=== PATIENT | female | born 1955 | race Caucasian/White ===

== ENCOUNTER 2016-11-09 08:46 | Day surgery (SDC) | payer OTHER ==
--- NOTE | 2016-11-07 15:01 | HP ---
PROCEDURE DATE: 11/09/16 HISTORY OF PRESENT ILLNESS: The patient is a 61 y/o female with no prior colonoscopy and family history of colon cancer in a grandmother and an aunt. She had a daughter and her father that had some polyps. No bloody stools. No change in bowel movements. No pain. Is in need of screening colonoscopy. PAST MEDICAL HISTORY: Hypertension. CURRENT MEDICATIONS: Metoprolol, [place], Xanax, Lasix, potassium, Feldene, Imdur, Lipitor, amlodipine besylate, and nitro PRN. ALLERGIES: NKDA. PAST SURGICAL HISTORY: Had 3 C-Sections, heart cath, foot surgery, tonsillectomy/adenoidectomy in the past. FAMILY HISTORY: As mentioned above. Also, includes hypertension and cancer. SOCIAL HISTORY: No smoking. Reports occasional alcohol use. No abuse. REVIEW OF SYSTEMS: 10 systems reviewed. No chest pain or palpitations. Other systems negative or noncontributory other than above and per preadmission questionnaire. PHYSICAL EXAMINATION: GENERAL: No acute distress. HEENT: Sclerae nonicteric. NECK: No JVD. CHEST: Equal excursion. Nonlabored breathing. CVS: Regular rate and rhythm. ABDOMEN: Soft. No peritoneal signs. EXTREMITIES: No significant edema. NEURO: Alert, moving extremities grossly symmetrically. No gross motor deficits noted. RECTAL: Deferred until time of endoscopy exam. IMPRESSION: 1. NEED FOR SCREENING COLONOSCOPY. Feel she is a candidate. She was shown the risk sheet and explained the procedure in detail, but not limited to, bleeding; infection; small risk of bowel injury or perforation possibly requiring open procedure; small risk of missed or nondiagnosis or incomplete exam possibly requiring barium enema or other studies or procedures; general risk of bowel prep; risk of sedation; post-op risk of nausea or vomiting or cramping, but not limited to. She understands and agrees to the planned procedure. Will proceed with outpatient screening colonoscopy.
[~2016-11-09 08:46] MED LIST: DIPRIVAN 200 MG/20 ML IV ONE; Lactated Ringers 1,000 ML IV ONE; SUBLIMAZE 100 MCG/2 ML IV ONE; Versed 2 MG/2 ML Injection IV ONE
[2016-11-09] MEDS ORDERED: Lactated Ringers 1,000 ML IV SCH (09:00)
[2016-11-09 11:41] VITALS: BP 127/62; PULSE 54; O2SAT 96
--- NOTE | 2016-11-09 15:00 | OP ---
SURGERY DATE/TIME: 11/09/2016 1015 PREOPERATIVE DIAGNOSIS: Family history of colon cancer need for screening colonoscopy. POSTOPERATIVE DIAGNOSES: 1) Small polyp rectum. 2) Small diverticula. 3) Small internal and external hemorrhoids. 4) Somewhat limited prep proximal right colon. PROCEDURES: Colonoscopy to cecum with hot biopsy removal in pieces small rectal polyp. SURGEON: Dr. Julio Mccullough. ANESTHESIA: MAC. ESTIMATED BLOOD LOSS: Minimal. INDICATIONS: As noted above. Risks and benefits explained in detail but not limited to and consent obtained. DESCRIPTION OF PROCEDURE AND FINDINGS: The patient is taken to the endoscopy room. MAC anesthesia induced. After official time out and no disagreement with planned procedure, digital rectal exam did not reveal any rectal masses. She did have some internal and external hemorrhoids. Video colonoscope inserted and passed up through the slightly tortuous sigmoid, descending, transverse colon. Prep overall was fairly good over to the proximal right colon I saw liquidy stool limiting the exam slightly. The scope was able to be passed around to the cecum valve, appendiceal orifice was well visualized and some semisolid and liquidy stool suction irrigated as well as possible. The scope then slowly and carefully withdrawn. There were no signs of any large polyps, masses or obstructing lesions. She did have a few diverticula in the left colon. She had some small internal and external hemorrhoids otherwise no large polyps, masses or obstructing lesions. There was a small polyp in the mid to distal rectum that was removed with hot biopsy forceps with brief bursts of cautery this required removing in two pieces. Good hemostasis noted. The scope is withdrawn. The patient tolerated the procedure well. There were no immediate complications. Findings were discussed with the family out in the hallway.
== END 2016-11-09 12:08 | disposition home or self-care (01) ==
LOC: SDC 08:46
PROVIDERS: ATTEND Surgery
PROC: 0DBH8ZX Excision of Cecum, Via Natural or Artificial Opening Endoscopic, Diagnostic (ICD-10-PCS; principal; 2016-11-09)
DX: K62.1 Rectal polyp (principal); Z12.11 Encounter for screening for malignant neoplasm of colon; Z80.0 Family history of malignant neoplasm of digestive organs; K57.90 Diverticulosis of intestine, part unspecified, without perforation or abscess without bleeding; K64.4 Residual hemorrhoidal skin tags; K64.8 Other hemorrhoids; I10 Essential (primary) hypertension; Z79.899 Other long term (current) drug therapy
CPT/HCPCS: 00810; 36415; 88305; J2250; J2704; J3010

== ENCOUNTER 2021-05-11 15:44 | Emergency (ER) | payer SELFPAY ==
[2021-05-11] MEDS ORDERED: Sodium Chloride 0.9% 1000 ML 1,000 ML IV STA (16:59)
[2021-05-11 17:25] LABS: Absolute Neutrophil Ct (ANC) 4.27 (1.4-6.9); BASOPHIL % 0.3 % (0.0-0.4); Basophil (Absolute #) 0.02 (0-0.4); Eosinophil % 1.8 % (0.00-5.0); Eosinophil (Absolute #) 0.13 (0-0.5); Hematocrit 46.9 % (35-47); Hemoglobin 15.6 gm/dl (12.0-16.0); Lymphocyte (Absolute #) 2.09 (1.0-4.6); Lymphocytes % 28.6 % (24.0-44.0); Mean Cell Volume 91.4 fl (78-100); Mean Corpuscular Hemoglobin 30.4 pg (26-32); Mean Corpuscular Hgb Concent. 33.3 g/dl (32-36); Monocytes % 10.9 % (0.0-12.0); Neutrophil % 58.4 % (36.0-66.0); Platelet Count 272 K/mm3 (150-450); Red Blood Count 5.13 M/mm3 (4.1-5.4); Red Cell Distribution Width 13.3 % (11.5-14.0); White Blood Count 7.3 K/mm3 (4.0-10.5)
--- NOTE | 2021-05-11 17:25 | ERPHSYRPT ---
- History of Present Illness Time Seen by Provider: 05/11/21 16:33 Source: patient Exam Limitations: no limitations Patient Subjective Stated Complaint: weakness- COVID POSITIVE Triage Nursing Assessment: Patient brought back to ED via w/c and transferred self to bed. Patient A+O X3. Patient's skin flushed, warm and dry. Patient positive with COVID on 05/07/2021 at [facility]. Patient complains of fever, cough, vomiting, diarrhea, loss of taste, Headache, bodyaches and fatigue. Patient states she has been in bed several days and not able to eat or drink. Physician History: 65 years old female vaccinated against COVID-19 with complains of generalized body ache fatigue and tiredness for 1 week along with vomiting and diarrhea and tested positive for COVID-19 on 05 07 presented in the ER with generalized weakness and lack of energy and feels as if she is dehydrated. Patient reports she had multiple episodes of nonprojectile, nonbilious vomiting until day before yesterday and did not have any vomiting since then but does have loose watery stool which she has every time she drinks or eat anything. She has a decreased appetite. She feels dehydrated as she is not been able to hold much down. No chest pain, minimal shortness of breath at times and has nonproductive cough minimally. Patient wants IV fluids. Timing/Duration: week(s) (1), gradual onset Severity: moderate Associated Symptoms: nausea, vomiting, cough, chills, fever, headaches, loss of appetite, malaise, weakness, No shortness of breath, No chest pain Allergies/Adverse Reactions: No Known Drug Allergies Allergy (Verified 05/11/21 16:13) Home Medications: Furosemide 40 mg [Lasix 40 MG] 40 mg PO DAILY 08/14/12 [History] ALPRAZolam 1 MG [Xanax 1 mg] 1 mg PO DAILY 10/07/16 [History] Amlodipine/Valsartan [[place] 5-320 mg Tablet] 1 each PO DAILY 10/07/16 [History] Atorvastatin Calcium [Lipitor] 10 mg PO DAILY 10/07/16 [History] Fluticasone Propionate [Flonase NASAL] 2 sprays NS DAILY 10/07/16 [History] Hydrocodone/APAP 10/325 mg [[place] 10/325 MG Tablet] 1 tab PO BID 10/07/16 [History] Isosorbide Mononitrate 30 mg [Imdur 30 MG] 30 mg PO DAILY 10/07/16 [Histor y] Metoprolol Succinate 50 mg [Toprol Xl 50 MG] 50 mg PO DAILY 10/07/16 [History] Nitroglycerin 0.4 mg (Ed) [Nitrostat 0.4 MG (ED)] 0.4 mg SL UD 10/07/16 [History] Piroxicam [Feldene] 20 mg PO DAILY 10/07/16 [History] Potassium Chloride 10 Meq Tab* [Klor Con 10 MEQ] 10 meq PO DAILY 10/07/16 [History] Hx Tetanus, Diphtheria Vaccination/Date Given: No Hx Influenza Vaccination/Date Given: Yes (2020) Hx Pneumococcal Vaccination/Date Given: No Immunizations Up to Date: Yes Travel Risk - International Travel Have you traveled outside of the country in past 3 weeks: No - Coronavirus Screening Are you exhibiting any of the following symptoms?: Yes Symptoms: Fever, Cough: New Onset, Vomiting/Diarrhea, Headaches/Body Aches/Fatigue Close contact with a COVID-19 positive Pt in past 14-21 Days: No - Vaccine Status Have you recieved a Covid-19 vaccination: No 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 - Vaccination Dates Date of 2cond Vaccination (if applicable): unknown - Review of Systems Constitutional: Fatigue, Weakness Eyes: No Symptoms Ears, Nose, & Throat: No Symptoms Respiratory: Cough Cardiac: No Symptoms Abdominal/Gastrointestinal: Nausea, Vomiting, Diarrhea Genitourinary Symptoms: No Symptoms Musculoskeletal: Myalgias Skin: No Symptoms Neurological: No Symptoms Psychological: No Symptoms Endocrine: No Symptoms Hematologic/Lymphatic: No Symptoms Immunological/Allergic: No Symptoms - Past Medical History Pertinent Past Medical History: Yes Neurological History: No Pertinent History ENT History: No Pertinent History Cardiac History: Angina, Hypertension Respiratory History: No Pertinent History Endocrine Medical History: No Pertinent History Musculoskeletal History: Arthritis GI Medical History: No Pertinent History History: No Pertinent History Psycho-Social History: Anxiety Female Reproductive Disorders: No Pertinent History - Past Surgical History Past Surgical History: Yes Neuro Surgical History: No Pertinent History Cardiac: Cardiac Catheterization Gastrointestinal: No Pertinent History Genitourinary: No Pertinent History Musculoskeletal: Other Female Surgical History: Section, Tubal Ligation Other Surgical History: foot surgery - Social History Smoking Status: Never smoker Exposure to second hand smoke: Yes Drug Use: none Patient Lives Alone: Yes - Female History Hx Now: No - Nursing Vital Signs Nursing Vital Signs: Initial Vital Signs Temperature 99.0 F 05/11/21 16:15 Pulse Rate 77 05/11/21 16:15 Respiratory Rate 18 05/11/21 16:15 Blood Pressure 125/72 05/11/21 16:15 O2 Sat by Pulse Oximetry 96 05/11/21 16:15 Pain Scale Pain Intensity 5 - Physical Exam General Appearance: no apparent distress, alert, anxiety Eye Exam: PERRL/EOMI, eyes nml inspection Ears, Nose, Throat Exam: normal ENT inspection, TMs normal, pharynx normal, moist mucous membranes Neck Exam: normal inspection, non-tender, supple, full range of motion Respiratory Exam: normal breath sounds, lungs clear Cardiovascular Exam: regular rate/rhythm, normal heart sounds Gastrointestinal/Abdomen Exam: soft, normal bowel sounds, No tenderness Back Exam: normal inspection, normal range of motion Extremity Exam: normal inspection, normal range of motion, pelvis stable Neurologic Exam: alert, oriented x 3, cooperative, hha II-XII nml as tested, nml cerebellar function, sensation nml, No motor deficits Skin Exam: normal color SpO2 Interpretation: normal SpO2: 96 O2 Delivery: Room Air - Course EKG Interpreted by Me: RATE (76), Sinus Rhythm, NORMAL AXIS, NORMAL INTERVALS, Non-specific ST Changes Ordered Tests: Active Orders 24 hr Category Date Time Status CHEST 1 VIEW (PORTABLE) Stat Exams 05/11/21 16:59 Taken CBC W DIFF Stat Lab 05/11/21 17:21 Completed CMP Stat Lab 05/11/21 17:21 Completed LIPASE Stat Lab 05/11/21 17:21 Completed MAGNESIUM Stat Lab 05/11/21 17:21 Completed NT PRO BNP Stat Lab 05/11/21 17:21 Completed UA W/RFX UR CULTURE Stat Lab 05/11/21 16:59 Ordered Medication Summary Discontinued Medications Generic Name Dose Route Start Last Admin Trade Name Freq PRN Reason Stop Dose Admin Sodium Chloride 1,000 mls @ 999 mls/hr 05/11/21 16:59 05/11/21 18:47 Sodium Chloride 0.9% 1000 Ml IV 05/11/21 17:59 Infused .Q1H1M STA Infusion Sodium Chloride Confirm 05/11/21 17:30 Sodium Chloride 0.9% 1000 Ml Administered 05/11/21 17:31 Dose 1,000 mls @ ud .ROUTE .K-MED ONE Lab/Rad Data: Laboratory Result Diagrams 05/11/21 17:21 05/11/21 17:21 Laboratory Results 05/11/21 05/11/21 Range/Units 17:21 17:21 WBC 7.3 (4.0-10.5) K/mm3 RBC 5.13 (4.1-5.4) M/mm3 Hgb 15.6 (12.0-16.0) gm/dl Hct 46.9 (35-47) % MCV 91.4 (78-100) fl MCH 30.4 (26-32) pg MCHC 33.3 (32-36) g/dl RDW 13.3 (11.5-14.0) % Plt Count 272 (150-450) K/mm3 MPV 10.0 (7.5-11.0) fl Gran % 58.4 (36.0-66.0) % Eos # (Auto) 0.13 (0-0.5) Absolute Lymphs (auto) 2.09 (1.0-4.6) Absolute Monos (auto) 0.80 (0.0-1.3) Lymphocytes % 28.6 (24.0-44.0) % Monocytes % 10.9 (0.0-12.0) % Eosinophils % 1.8 (0.00-5.0) % Basophils % 0.3 (0.0-0.4) % Absolute Granulocytes 4.27 (1.4-6.9) Basophils # 0.02 (0-0.4) Sodium 142 (137-145) mmol/L Potassium 4.0 (3.5-5.1) mmol/L Chloride 107 (98-107) mmol/L Carbon Dioxide 21 L (22-30) mmol/L Anion Gap 17.7 H (5-15) MEQ/L BUN 13 (7-17) mg/dL Creatinine 0.70 (0.52-1.04) mg/dL Estimated GFR > 60.0 ML/MIN Glucose 89 (74-106) mg/dL Calcium 10.0 (8.4-10.2) mg/dL Magnesium 2.1 (1.6-2.3) mg/dL Total Bilirubin 0.80 (0.2-1.3) mg/dL AST 31 (14-36) U/L ALT 47 H (0-35) U/L Alkaline Phosphatase 98 (38-126) U/L NT-Pro-B Natriuret Pep 47.2 (0-900) pg/mL Serum Total Protein 7.4 (6.3-8.2) g/dL Albumin 4.1 (3.5-5.0) g/dL Lipase 158 (23-300) U/L - Progress Progress: improved, re-examined Progress Note: 05/11/21 19:16 She is given fluid bolus. Does not want anything for pain. Does not have any vomiting or nausea today. Abdominal exam is soft nontender with no peritoneal signs. Chest x-ray questionable airspace disease on the right but she is maintaining oxygen saturation around 98% and not tachypneic or tachycardic. Is probably viral etiology. Do not think she needs antibiotic. Work-up grossly unremarkable except for mild dehydration. Recommended increase hydration and will give Zofran to take as needed and outpatient follow-up. Discussed signs symptoms of worsening to ER which she seems understanding. Stable for discharge. Counseled pt/family regarding: lab results, diagnosis, need for follow-up, rad results - Departure Departure Disposition: Home Clinical Impression: Viral syndrome, Dehydration Condition: Stable Critical Care Time: No Referrals: AJAY WARREN [Primary Care Provider] - (Call tomorrow for reevaluation) Instructions: Dehydration, Adult (DC), Viral Syndrome (DC) Additional Instructions: Drink plenty of fluids to keep yourself well-hydrated. Take Zofran as needed. Follow-up with your primary care for reevaluation. Return to ER if have any difficulty breathing, worsening cough, constant high-grade fever chills etc. Prescriptions: Ondansetron ODT 4 MG [Zofran Odt 4 mg] 4 mg PO Q6H PRN PRN #7 tablet PRN Reason: Vomiting
[2021-05-11] MEDS ORDERED: Sodium Chloride 0.9% 1000 ML 1,000 ML ONE (17:30)
[2021-05-11 18:06] VITALS: O2SAT 96
[2021-05-11 18:07] LABS: ALBUMIN 4.1 g/dL (3.5-5.0); ALKALINE PHOSPHATASE 98 U/L (38-126); ANION GAP 17.7 MEQ/L (5-15); BLOOD UREA NITROGEN 13 mg/dL (7-17); CHLORIDE 107 mmol/L (98-107); Carbon Dioxide 21 mmol/L (22-30); EST GLOMERULAR FILTRATION RATE > 60.0 ML/MIN; Glucose 89 mg/dL (74-106); LIPASE 158 U/L (23-300); MAGNESIUM 2.1 mg/dL (1.6-2.3); NT PRO BNP 47.2 pg/mL (0-900); SGOT/AST 31 U/L (14-36); SGPT/ALT 47 U/L (0-35); SODIUM 142 mmol/L (137-145); Total Protein 7.4 g/dL (6.3-8.2)
[2021-05-11 19:36] VITALS: BP 139/73; PULSE 59
--- NOTE | 2021-05-12 08:56 | XRAY ---
Indication: Weakness. Comparison: August 18, 2014. Portable chest now hyperinflated with new right mid to lower lung patchy airspace disease and new minimal left base subsegmental atelectasis/scarring. Remaining heart and upper lungs unremarkable. Bony thorax intact with mild osteopenia and degenerative changes.
== END 2021-05-11 19:43 | disposition home or self-care (01) ==
LOC: ED 15:44
DX: B34.9 Viral infection, unspecified (principal); E86.0 Dehydration; R53.1 Weakness; U07.1 COVID-19; R11.2 Nausea with vomiting, unspecified; R05 Cough; R50.9 Fever, unspecified; R51.9 Headache, unspecified; R63.0 Anorexia; R53.81 Other malaise
CPT/HCPCS: 36000; 36415; 71045; 80053; 83690; 83735; 83880; 85025; 96360; 99284

== ENCOUNTER 2021-11-29 18:28 | Observation (INO) | payer MEDICARE, OTHER ==
[2021-11-29 19:08] LABS: Absolute Neutrophil Ct (ANC) 5.28 (1.4-6.9); Basophil (Absolute #) 0.02 (0-0.4); Eosinophil % 2.2 % (0.00-5.0); Hematocrit 41.9 % (35-47); Hemoglobin 13.6 gm/dl (12.0-16.0); Lymphocytes % 29.8 % (24.0-44.0); Mean Cell Volume 97.4 fl (78-100); Mean Corpuscular Hemoglobin 31.6 pg (26-32); Mean Corpuscular Hgb Concent. 32.5 g/dl (32-36); Mean Platelet Volume 8.9 fl (7.5-11.0); Monocyte (Absolute #) 0.85 (0.0-1.3); Monocytes % 9.4 % (0.0-12.0); Neutrophil % 58.4 % (36.0-66.0); Platelet Count 268 K/mm3 (150-450); Red Cell Distribution Width 13.9 % (11.5-14.0); White Blood Count 9.1 K/mm3 (4.0-10.5)
[2021-11-29 19:09] LABS: INR 0.96 (0.8-3.0); PROTIME 11.3 SECONDS (9.4-12.5)
[2021-11-29 19:11] LABS: PTT 29.7 SECONDS (25.1-36.5)
[2021-11-29 19:14] LABS: ALKALINE PHOSPHATASE 99 U/L (38-126); ANION GAP 12.8 MEQ/L (5-15); BLOOD UREA NITROGEN 15 mg/dL (7-17); CHLORIDE 104 mmol/L (98-107); Calcium 9.4 mg/dL (8.4-10.2); Carbon Dioxide 24 mmol/L (22-30); Creatinine 1 0.78 mg/dL (0.52-1.04); EST GLOMERULAR FILTRATION RATE > 60.0 ML/MIN; Glucose 73 mg/dL (74-106); Potassium 3.7 mmol/L (3.5-5.1); SGOT/AST 24 U/L (14-36); SGPT/ALT 20 U/L (0-35); SODIUM 137 mmol/L (137-145); Total Protein 6.8 g/dL (6.3-8.2)
--- NOTE | 2021-11-29 19:21 | ERPHSYRPT ---
- History of Present Illness Historian: patient, EMS Exam Limitations: no limitations Patient Subjective Stated Complaint: midsternal nonradiating chest pain since 1629 Triage Nursing Assessment: Patient presents to ED via EMS with chief complaint of midsternal, non radiating chest pain since 1629 today. 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 EMS also gave 324 asa and started 20 ga IV in L hand. Skin is PWD. Vitals signs stable, bradycardic at a rate of 50. Denied any other associated sx with the chest pain. Denies nausea, SOB, diaphoresis, etc. A & OX3, answers all questions appropriately. Respirations even and unlabored. Physician History: 66 yo wf w sharp midsternal chest pain starting at 16:30 at work. Pt took 2SL NTG w relief, but pain returned when she got home with relief w 1 additional SL NTG. Pain did not radiate. She states that she was mildly dyspneic without N/V/diaphoresis. Pt denies h/o MN/hyperlipidemia/tobacco use/DM but does have HTN. She has had 2 heart caths in the remote past wo stents by Dr. Laura. Similar pain 3 months ago but was not seen in ER. EMS gave 324 ASA in route. Timing/Duration: other (16:30) Quality: sharpness Location: substernal Chest Pain Radiation: no radiation Severity of Pain-Max: severe Severity of Pain-Current: none Modifying Factors: Improves With: nitroglycerin (Pain resolved w NTG x2 and then x1) Associated Symptoms: shortness of breath, No nausea, No vomiting, No palpitations, No heartburn, No abdominal pain, No cough, No hurts to breathe, No diaphoresis, No chills, No fever, No fatigue, No weakness, No swelling/lump in chest, No syncope, No rash, No headache, No dizziness, No edema, No back pain Prior Chest Pain/Cardiac Workup: cardiac cath Nitro Today/Relief: 0.4 mg x 3 Aspirin Treatment Today: 325 mg x 1, provided by EMS Allergies/Adverse Reactions: No Known Drug Allergies Allergy (Verified 11/30/21 01:08) Home Medications: Furosemide 40 mg [Lasix 40 MG] 40 mg PO DAILY 08/14/12 [History] ALPRAZolam 1 MG [Xanax 1 mg] 1 mg PO DAILY 10/07/16 [History] Amlodipine Besylate/Valsartan [Exforge 5-320 mg Tablet] 1 each PO DAILY 10/07/16 [History] Atorvastatin Calcium [Lipitor] 10 mg PO DAILY 10/07/16 [History] Fluticasone Propionate [Flonase NASAL] 2 sprays NS DAILY 10/07/16 [History] Hydrocodone/APAP 10/325 mg [[place] 10/325 MG Tablet] 1 tab PO BID 10/07/16 [History] Isosorbide Mononitrate 30 mg [Imdur 30 MG] 30 mg PO DAILY 10/07/16 [History] Metoprolol Succinate 50 mg [Toprol Xl 50 MG] 50 mg PO DAILY 10/07/16 [History] Nitroglycerin 0.4 mg (Ed) [Nitrostat 0.4 MG (ED)] 0.4 mg SL UD 10/07/16 [History] Piroxicam [Feldene] 20 mg PO DAILY 10/07/16 [History] Potassium Chloride 10 Meq Tab* [Klor Con 10 MEQ] 10 meq PO DAILY 10/07/16 [History] Hx Tetanus, Diphtheria Vaccination/Date Given: No Hx Influenza Vaccination/Date Given: Yes (2020) Hx Pneumococcal Vaccination/Date Given: No Travel Risk - International Travel Have you traveled outside of the country in past 3 weeks: No - Coronavirus Screening Are you exhibiting any of the following symptoms?: No Close contact with a COVID-19 positive Pt in past 14-21 Days: No - Vaccine Status Have you recieved a Covid-19 vaccination: Yes Video Poker Floorman: SHADOW - Vaccination Dates Date of 2cond Vaccination (if applicable): unknown - Review of Systems Constitutional: No Symptoms Eyes: No Symptoms Ears, Nose, & Throat: No Symptoms Respiratory: No Symptoms, Dyspnea Cardiac: No Symptoms, Chest Pain Abdominal/Gastrointestinal: No Symptoms Genitourinary Symptoms: No Symptoms Musculoskeletal: No Symptoms Skin: No Symptoms Neurological: No Symptoms Psychological: No Symptoms Endocrine: No Symptoms Hematologic/Lymphatic: No Symptoms Immunological/Allergic: No Symptoms - Past Medical History Pertinent Past Medical History: Yes Neurological History: No Pertinent History ENT History: No Pertinent History Cardiac History: Angina, Hypertension Respiratory History: No Pertinent History Endocrine Medical History: No Pertinent History Musculoskeletal History: Arthritis GI Medical History: No Pertinent History History: No Pertinent History Psycho-Social History: Anxiety Female Reproductive Disorders: No Pertinent History - Past Surgical History Past Surgical History: Yes Neuro Surgical History: No Pertinent History Cardiac: Cardiac Catheterization Gastrointestinal: No Pertinent History Genitourinary: No Pertinent History Musculoskeletal: Other Female Surgical History: Section, Tubal Ligation Other Surgical History: foot surgery - Social History Smoking Status: Never smoker Exposure to second hand smoke: Yes Drug Use: none Patient Lives Alone: Yes Significant Family History: no pertinent family hx - Nursing Vital Signs Nursing Vital Signs: Initial Vital Signs Temperature 97.3 F 11/29/21 18:30 Pulse Rate 77 11/29/21 18:30 Respiratory Rate 18 11/29/21 18:30 Blood Pressure 127/86 11/29/21 18:30 O2 Sat by Pulse Oximetry 95 11/29/21 18:30 Pain Scale Pain Intensity 5 WNL - Physical Exam General Appearance: no apparent distress Eye Exam: PERRL/EOMI, eyes nml inspection Ears, Nose, Throat Exam: normal ENT inspection, TMs normal, pharynx normal, moist mucous membranes Neck Exam: normal inspection, non-tender, supple, full range of motion, No meningismus, No mass, No Brudzinski, No Kernig's, No carotid bruit Respiratory Exam: normal breath sounds, lungs clear, airway intact, No chest tenderness, No respiratory distress Cardiovascular Exam: bradycardia, capillary refill <2 sec, No murmur Gastrointestinal/Abdomen Exam: soft, normal bowel sounds, No tenderness Extremity Exam: normal inspection, normal range of motion, pelvis stable Neurologic Exam: alert, oriented x 3, cooperative, 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, normal mood/affect, nml cerebellar function, nml station & gait, sensation nml, No motor deficits, No sensory deficit Skin Exam: normal color, warm, dry Lymphatic Exam: No adenopathy SpO2 Interpretation: normal SpO2: 95 O2 Delivery: Room Air - Course Nursing assessment & vital signs reviewed: Yes EKG Interpreted by Me: RATE (Sinus edin/Rate 50/Prolonged QT/Nonspecific ST abnormality) - Radiology Exams Chest X-ray Interpretation: Interpreted by me (Cardiomegaly, nothing acute) - CT Exams Chest CT Interpretation: Tele-radiologist Report (No PE/pneumonia/prominent mediastinal nodes) Ordered Tests: Active Orders 24 hr Category Date Time Status EKG-ER Only STAT Care 11/29/21 18:41 Completed IV Insertion STAT Care 11/29/21 18:47 Completed Heart-Healthy Diet Diet 11/29/21 Breakfast Active CHEST 1 VIEW (PORTABLE) Stat Exams 11/29/21 18:42 Taken CHEST WITH CONTRAST [CT] Stat Exams 11/29/21 19:54 Taken CBC W DIFF Stat Lab 11/29/21 18:55 Completed CMP Stat Lab 11/29/21 18:55 Completed LIPID PROFILE AM.LAB Lab 11/30/21 04:00 Ordered NT PRO BNP Stat Lab 11/29/21 18:55 Completed PROTIME WITH INR Stat Lab 11/29/21 18:55 Completed PTT Stat Lab 11/29/21 18:55 Completed TROPONIN Q3H Lab 11/29/21 18:55 Completed TROPONIN Q3H Lab 11/29/21 21:41 Completed TROPONIN Q3H Lab 11/30/21 00:53 Completed TROPONIN Q3H Lab 11/30/21 04:06 Completed TROPONIN Q3H Lab 11/30/21 06:45 Ordered Medication Summary Generic Name Dose Route Start Last Admin Trade Name Freq PRN Reason Stop Dose Admin Acetaminophen 650 mg 11/29/21 22:20 11/29/21 23:05 Acetaminophen 325 Mg Tablet PO 12/29/21 22:19 650 mg Q4H PRN PRN Administration PAIN AND/OR FEVER Al Hydrox/Mg Hydrox/Simethicone 30 ml 11/29/21 22:20 Mag Hydrox/Al Hydrox/Simeth 30 Ml Udcup PO 12/29/21 22:19 Q4H PRN PRN INDIGESTION Aspirin 325 mg 11/30/21 10:00 Aspirin 325 Mg Tablet.Ec PO 12/30/21 09:59 DAILY KAYLA Enoxaparin Sodium 40 mg 11/30/21 10:00 Enoxaparin Sodium 40 Mg/0.4 Ml Syringe SQ 12/30/21 09:59 DAILY KAYLA Famotidine 20 mg 11/30/21 10:00 Famotidine 20 Mg/1 Vial IV 12/30/21 09:59 Q12HT KAYLA Magnesium Hydroxide 30 - 60 ml 11/29/21 22:20 Magnesium Hydroxide 30 Ml Udcup PO 12/29/21 22:19 QDP PRN CONSTIPATION Nitroglycerin 0.4 mg 11/29/21 22:20 Nitroglycerin 0.4 Mg Tablet Bottle SL 12/29/21 22:19 .Q5MIN PRN CHEST PAIN Ondansetron HCl 4 mg 11/29/21 22:20 Ondansetron Hcl 4 Mg/2 Ml Vial IV 12/29/21 22:19 Q4H PRN PRN NAUSEA/VOMITING Senna/Docusate Sodium 2 udtab 11/29/21 22:20 Senna/Docusate Sodium 1 Udtab Tablet PO 12/29/21 22:19 BID PRN PRN CONSTIPATION Lab/Rad Data: Laboratory Result Diagrams 11/29/21 18:55 11/29/21 18:55 Laboratory Results 11/29/21 11/29/21 11/29/21 Range/Units 22:42 21:41 18:55 WBC (4.0-10.5) K/mm3 RBC (4.1-5.4) M/mm3 Hgb (12.0-16.0) gm/dl Hct (35-47) % MCV (78-100) fl MCH (26-32) pg MCHC (32-36) g/dl RDW (11.5-14.0) % Plt Count (150-450) K/mm3 MPV (7.5-11.0) fl Gran % (36.0-66.0) % Eos # (Auto) (0-0.5) Absolute Lymphs (auto) (1.0-4.6) Absolute Monos (auto) (0.0-1.3) Lymphocytes % (24.0-44.0) % Monocytes % (0.0-12.0) % Eosinophils % (0.00-5.0) % Basophils % (0.0-0.4) % Absolute Granulocytes (1.4-6.9) Basophils # (0-0.4) PT (9.4-12.5) SECONDS INR (0.8-3.0) APTT (25.1-36.5) SECONDS Sodium (137-145) mmol/L Potassium (3.5-5.1) mmol/L Chloride (98-107) mmol/L Carbon Dioxide (22-30) mmol/L Anion Gap (5-15) MEQ/L BUN (7-17) mg/dL Creatinine (0.52-1.04) mg/dL Estimated GFR ML/MIN Glucose (74-106) mg/dL Calcium (8.4-10.2) mg/dL Total Bilirubin (0.2-1.3) mg/dL AST (14-36) U/L ALT (0-35) U/L Alkaline Phosphatase (38-126) U/L Troponin I < 0.012 (0.000-0.034) ng/mL NT-Pro-B Natriuret Pep 172 (0-900) pg/mL Serum Total Protein (6.3-8.2) g/dL Albumin (3.5-5.0) g/dL Influenza Type A Ag NEGATIVE (NEGATIVE) Influenza Type B Ag NEGATIVE (NEGATIVE) RSV (PCR) NEGATIVE (Negative) SARS-CoV-2 (PCR) NEGATIVE (NEGATIVE) 11/29/21 11/29/21 11/29/21 Range/Units 18:55 18:55 18:55 WBC (4.0-10.5) K/mm3 RBC (4.1-5.4) M/mm3 Hgb (12.0-16.0) gm/dl Hct (35-47) % MCV (78-100) fl MCH (26-32) pg MCHC (32-36) g/dl RDW (11.5-14.0) % Plt Count (150-450) K/mm3 MPV (7.5-11.0) fl Gran % (36.0-66.0) % Eos # (Auto) (0-0.5) Absolute Lymphs (auto) (1.0-4.6) Absolute Monos (auto) (0.0-1.3) Lymphocytes % (24.0-44.0) % Monocytes % (0.0-12.0) % Eosinophils % (0.00-5.0) % Basophils % (0.0-0.4) % Absolute Granulocytes (1.4-6.9) Basophils # (0-0.4) PT 11.3 (9.4-12.5) SECONDS INR 0.96 (0.8-3.0) APTT 29.7 (25.1-36.5) SECONDS Sodium 137 (137-145) mmol/L Potassium 3.7 (3.5-5.1) mmol/L Chloride 104 (98-107) mmol/L Carbon Dioxide 24 (22-30) mmol/L Anion Gap 12.8 (5-15) MEQ/L BUN 15 (7-17) mg/dL Creatinine 0.78 (0.52-1.04) mg/dL Estimated GFR > 60.0 ML/MIN Glucose 73 L (74-106) mg/dL Calcium 9.4 (8.4-10.2) mg/dL Total Bilirubin 0.60 (0.2-1.3) mg/dL AST 24 (14-36) U/L ALT 20 (0-35) U/L Alkaline Phosphatase 99 (38-126) U/L Troponin I < 0.012 (0.000-0.034) ng/mL NT-Pro-B Natriuret Pep (0-900) pg/mL Serum Total Protein 6.8 (6.3-8.2) g/dL Albumin 4.0 (3.5-5.0) g/dL Influenza Type A Ag (NEGATIVE) Influenza Type B Ag (NEGATIVE) RSV (PCR) (Negative) SARS-CoV-2 (PCR) (NEGATIVE) 11/29/21 Range/Units 18:55 WBC 9.1 (4.0-10.5) K/mm3 RBC 4.30 (4.1-5.4) M/mm3 Hgb 13.6 (12.0-16.0) gm/dl Hct 41.9 (35-47) % MCV 97.4 (78-100) fl MCH 31.6 (26-32) pg MCHC 32.5 (32-36) g/dl RDW 13.9 (11.5-14.0) % Plt Count 268 (150-450) K/mm3 MPV 8.9 (7.5-11.0) fl Gran % 58.4 (36.0-66.0) % Eos # (Auto) 0.20 (0-0.5) Absolute Lymphs (auto) 2.70 (1.0-4.6) Absolute Monos (auto) 0.85 (0.0-1.3) Lymphocytes % 29.8 (24.0-44.0) % Monocytes % 9.4 (0.0-12.0) % Eosinophils % 2.2 (0.00-5.0) % Basophils % 0.2 (0.0-0.4) % Absolute Granulocytes 5.28 (1.4-6.9) Basophils # 0.02 (0-0.4) PT (9.4-12.5) SECONDS INR (0.8-3.0) APTT (25.1-36.5) SECONDS Sodium (137-145) mmol/L Potassium (3.5-5.1) mmol/L Chloride (98-107) mmol/L Carbon Dioxide (22-30) mmol/L Anion Gap (5-15) MEQ/L BUN (7-17) mg/dL Creatinine (0.52-1.04) mg/dL Estimated GFR ML/MIN Glucose (74-106) mg/dL Calcium (8.4-10.2) mg/dL Total Bilirubin (0.2-1.3) mg/dL AST (14-36) U/L ALT (0-35) U/L Alkaline Phosphatase (38-126) U/L Troponin I (0.000-0.034) ng/mL NT-Pro-B Natriuret Pep (0-900) pg/mL Serum Total Protein (6.3-8.2) g/dL Albumin (3.5-5.0) g/dL Influenza Type A Ag (NEGATIVE) Influenza Type B Ag (NEGATIVE) RSV (PCR) (Negative) SARS-CoV-2 (PCR) (NEGATIVE) - Progress Progress Note: 11/29/21 22:18 Pt pain free throughout stay but has risk factors so admitted per Dr. Loza 11/29/21 22:24 Orders written Counseled pt/family regarding: lab results, diagnosis, need for follow-up, rad results - Departure Departure Disposition: Observation Clinical Impression: Chest pain Condition: Stable Critical Care Time: No
[2021-11-29] MEDS ORDERED: Zofran 4 MG/2 ML VIAL IV PRN (22:20)
[2021-11-29] MEDS ORDERED: MAALOX ES 30 ML UNIT DOSE PO PRN (22:20)
[2021-11-29] MEDS ORDERED: MILK OF MAGNESIA 30 ML PO PRN (22:20)
[2021-11-29] MEDS ORDERED: Nitrostat 0.4 MG Tablet SL PRN (22:20)
[2021-11-29] MEDS ORDERED: TYLENOL 325 MG PO PRN (22:20)
[2021-11-29] MEDS ORDERED: Senokot-S Tablet PO PRN (22:20)
[2021-11-29 23:20] LABS: INFLUENZA A NEGATIVE (NEGATIVE); INFLUENZA B NEGATIVE (NEGATIVE); RESPIRATORY SYNCTIAL VIRUS NEGATIVE (Negative); SARS-CoV-2 Xpert Express NEGATIVE (NEGATIVE)
--- NOTE | 2021-11-30 07:27 | XRAY ---
Indication: Chest pain, pressure, and tightness. Short of breath. Hypertension. Multiple contiguous axial images obtained through the chest using 100 cc Isovue-370 contrast and PE protocol. Comparison: None There is good opacification of the pulmonary arteries to include the lobar and segmental branches. No pulmonary embolus. Heart not enlarged. Aorta is normal in course and caliber with very minimal calcifications. No pathologic mediastinal/hilar lymphadenopathy. 1.2 cm right thyroid hypodense nodule/cyst. Lungs demonstrates minimal bilateral dependent atelectasis. No suspicious pulmonary mass, infiltrate, effusion, or pneumothorax. Bony thorax intact with mild osteopenia and mild/moderate degenerative changes throughout the spine. Limited upper abdomen demonstrates mild fatty liver. Impression: 1. Negative pulmonary embolus. No acute cardiopulmonary abnormalities. 2. 1.2 cm right thyroid hypodense nodule/cyst. Sonogram may yield further information if clinically warranted 3. Mild fatty liver and chronic bony findings. Comment: Preliminary interpretation made by C. No critical discrepancy.
--- NOTE | 2021-11-30 07:29 | XRAY ---
Indication: Chest pain. Comparison: May 11, 2021. Portable chest hyperinflated and now clear. Heart not enlarged for AP portable technique. Bony thorax intact with mild osteopenia and degenerative changes. Impression: Nonacute hyperinflated chest.
[2021-11-30 07:53] LABS: Risk Ratio 2.5
[2021-11-30 08:06] VITALS: BP 109/54; PULSE 51; O2SAT 93
--- NOTE | 2021-11-30 08:23 | PCM.HP ---
History of Present Illness - Chief Complaint Chief Complaint: Chest pain rule out ACS History of Present Illness: is a 66 year old female came to ER c/o sharp midsternal chest pain starting at 16:30 at work. Pt took 2SL NTG w relief, but pain returned when she got home with relief w 1 additional SL NTG. Pain did not radiate. She states that she was mildly dyspneic without N/V/diaphoresis. Pt denies h/o MD/hyperlipidemia/tobacco use/DM but does have HTN. She has had 2 heart caths in the remote past wo stents by Dr. Laura. Similar pain 3 months ago but was not seen in ER. EMS gave 324 ASA in route. - Review of Systems Constitutional: No Fever, No Chills Eyes: No Symptoms Ears, Nose, & Throat: No Symptoms Respiratory: No Cough, No Short Of Breath Cardiac: Chest Pain, No Edema, No Syncope Abdominal/Gastrointestinal: No Abdominal Pain, No Nausea, No Vomiting, No Diarrhea Genitourinary Symptoms: No Dysuria Musculoskeletal: No Back Pain, No Neck Pain Skin: No Rash Neurological: No Dizziness, No Focal Weakness, No Sensory Changes Psychological: No Symptoms Endocrine: No Symptoms Hematologic/Lymphatic: No Symptoms Immunological/Allergic: No Symptoms Medications & Allergies Home Medications: Home Medication List Furosemide 40 mg [Lasix 40 MG] 40 mg PO DAILY 08/14/12 [History Confirmed 11/29/21] ALPRAZolam 1 MG [Xanax 1 mg] 1 mg PO DAILY 10/07/16 [History Confirmed 11/29/21] Amlodipine Besylate/Valsartan [Exforge 5-320 mg Tablet] 1 each PO DAILY 10/07/16 [History Confirmed 11/29/21] Atorvastatin Calcium [Lipitor] 10 mg PO DAILY 10/07/16 [History Confirmed 11/29/21] Fluticasone Propionate [Flonase NASAL] 2 sprays NS DAILY 10/07/16 [History Confirmed 11/29/21] Hydrocodone/APAP 10/325 mg [Kremlin 10/325 MG Tablet] 1 tab PO BID 10/07/16 [History Confirmed 11/29/21] Isosorbide Mononitrate 30 mg [Imdur 30 MG] 30 mg PO DAILY 10/07/16 [History Confirmed 11/29/21] Metoprolol Succinate 50 mg [Toprol Xl 50 MG] 50 mg PO DAILY 10/07/16 [History Confirmed 11/29/21] Nitroglycerin 0.4 mg (Ed) [Nitrostat 0.4 MG (ED)] 0.4 mg SL UD 10/07/16 [History Confirmed 11/29/21] Piroxicam [Feldene] 20 mg PO DAILY 10/07/16 [History Confirmed 11/29/21] Potassium Chloride 10 Meq Tab* [Klor Con 10 MEQ] 10 meq PO DAILY 10/07/16 [History Confirmed 11/29/21] Allergies/Adverse Reactions: Allergies Allergy/AdvReac Type Severity Reaction Status Date / Time No Known Drug Allergies Allergy Verified 11/30/21 01:08 - Past Medical History Past Medical History: Yes Neurological History: No Pertinent History ENT History: No Pertinent History Cardiac History: Angina, Hypertension Respiratory History: No Pertinent History Endocrine Medical History: No Pertinent History Musculoskelatal History: Arthritis GI Medical History: No Pertinent History History: No Pertinent History Pyscho-Social History: Anxiety Reproductive Disorders: No Pertinent History - Past Surgical History Past Surgical History: Yes Neuro Surgical History: No Pertinent History Cardiac History: Cardiac Catheterization GI Surgical History: No Pertinent History Genitourinary Surgical Hx: No Pertinent History Musculskeletal Surgical Hx: Other Female Surgical History: Section, Tubal Ligation Other Surgical History: foot surgery - Social History Smoking Status: Never smoker Exposure to second hand smoke: Yes Alcohol: Occasionally Drug Use: none Significant Family History: no pertinent family hx - Physical Exam Vital Signs: Vital Signs - 24 hr Temp Pulse Pulse Resp BP BP Pulse Ox 11/30/21 08:00 97.8 F 51 L 18 109/54 93 L 11/30/21 06:09 95 11/30/21 04:00 96.9 F 60 20 110/53 94 L 11/30/21 00:15 97.3 F 54 L 16 120/52 95 11/29/21 22:00 54 L 18 120/52 96 11/29/21 21:00 60 14 125/59 94 L 11/29/21 20:04 54 L 18 128/66 96 11/29/21 19:30 52 L 18 126/59 97 11/29/21 18:30 97.3 F 77 58 L 18 127/86 95 General Appearance: no apparent distress, alert Neurologic Exam: alert, oriented x 3, cooperative, normal mood/affect, nml cerebellar function, nml station & gait, sensation nml, No motor deficits Eye Exam: PERRL/EOMI, eyes nml inspection Ears, Nose, Throat Exam: normal ENT inspection, TMs normal, pharynx normal, moist mucous membranes Neck Exam: normal inspection, non-tender, supple, full range of motion Respiratory Exam: normal breath sounds, lungs clear, No respiratory distress Cardiovascular Exam: regular rate/rhythm, normal heart sounds, normal peripheral pulses Gastrointestinal/Abdomen Exam: soft, normal bowel sounds, No tenderness, No mass Back Exam: normal inspection, normal range of motion, No CVA tenderness, No vertebral tenderness Extremity Exam: normal inspection, normal range of motion, pelvis stable Skin Exam: normal color, warm, dry, No rash Lymphatic Exam: No adenopathy Results - Labs Lab/Micro Results: Lab Results-Last 24 Hours 11/29/21 11/29/21 11/29/21 Range/Units 18:55 18:55 18:55 WBC 9.1 (4.0-10.5) K/mm3 RBC 4.30 (4.1-5.4) M/mm3 Hgb 13.6 (12.0-16.0) gm/dl Hct 41.9 (35-47) % MCV 97.4 (78-100) fl MCH 31.6 (26-32) pg MCHC 32.5 (32-36) g/dl RDW 13.9 (11.5-14.0) % Plt Count 268 (150-450) K/mm3 MPV 8.9 (7.5-11.0) fl Gran % 58.4 (36.0-66.0) % Eos # (Auto) 0.20 (0-0.5) Absolute Lymphs (auto) 2.70 (1.0-4.6) Absolute Monos (auto) 0.85 (0.0-1.3) Lymphocytes % 29.8 (24.0-44.0) % Monocytes % 9.4 (0.0-12.0) % Eosinophils % 2.2 (0.00-5.0) % Basophils % 0.2 (0.0-0.4) % Absolute Granulocytes 5.28 (1.4-6.9) Basophils # 0.02 (0-0.4) PT 11.3 (9.4-12.5) SECONDS INR 0.96 (0.8-3.0) APTT 29.7 (25.1-36.5) SECONDS Sodium 137 (137-145) mmol/L Potassium 3.7 (3.5-5.1) mmol/L Chloride 104 (98-107) mmol/L Carbon Dioxide 24 (22-30) mmol/L Anion Gap 12.8 (5-15) MEQ/L BUN 15 (7-17) mg/dL Creatinine 0.78 (0.52-1.04) mg/dL Estimated GFR > 60.0 ML/MIN Glucose 73 L (74-106) mg/dL Calcium 9.4 (8.4-10.2) mg/dL Total Bilirubin 0.60 (0.2-1.3) mg/dL AST 24 (14-36) U/L ALT 20 (0-35) U/L Alkaline Phosphatase 99 (38-126) U/L Troponin I (0.000-0.034) ng/mL NT-Pro-B Natriuret Pep (0-900) pg/mL Serum Total Protein 6.8 (6.3-8.2) g/dL Albumin 4.0 (3.5-5.0) g/dL Triglycerides (30-150) mg/dL Cholesterol (50-200) mg/dL LDL Cholesterol (30-100) mg/dL HDL Cholesterol (40-60) mg/dL Heart Disease Risk Ratio Influenza Type A Ag (NEGATIVE) Influenza Type B Ag (NEGATIVE) RSV (PCR) (Negative) SARS-CoV-2 (PCR) (NEGATIVE) 11/29/21 11/29/21 11/29/21 Range/Units 18:55 18:55 21:41 WBC (4.0-10.5) K/mm3 RBC (4.1-5.4) M/mm3 Hgb (12.0-16.0) gm/dl Hct (35-47) % MCV (78-100) fl MCH (26-32) pg MCHC (32-36) g/dl RDW (11.5-14.0) % Plt Count (150-450) K/mm3 MPV (7.5-11.0) fl Gran % (36.0-66.0) % Eos # (Auto) (0-0.5) Absolute Lymphs (auto) (1.0-4.6) Absolute Monos (auto) (0.0-1.3) Lymphocytes % (24.0-44.0) % Monocytes % (0.0-12.0) % Eosinophils % (0.00-5.0) % Basophils % (0.0-0.4) % Absolute Granulocytes (1.4-6.9) Basophils # (0-0.4) PT (9.4-12.5) SECONDS INR (0.8-3.0) APTT (25.1-36.5) SECONDS Sodium (137-145) mmol/L Potassium (3.5-5.1) mmol/L Chloride (98-107) mmol/L Carbon Dioxide (22-30) mmol/L Anion Gap (5-15) MEQ/L BUN (7-17) mg/dL Creatinine (0.52-1.04) mg/dL Estimated GFR ML/MIN Glucose (74-106) mg/dL Calcium (8.4-10.2) mg/dL Total Bilirubin (0.2-1.3) mg/dL AST (14-36) U/L ALT (0-35) U/L Alkaline Phosphatase (38-126) U/L Troponin I < 0.012 < 0.012 (0.000-0.034) ng/mL NT-Pro-B Natriuret Pep 172 (0-900) pg/mL Serum Total Protein (6.3-8.2) g/dL Albumin (3.5-5.0) g/dL Triglycerides (30-150) mg/dL Cholesterol (50-200) mg/dL LDL Cholesterol (30-100) mg/dL HDL Cholesterol (40-60) mg/dL Heart Disease Risk Ratio Influenza Type A Ag (NEGATIVE) Influenza Type B Ag (NEGATIVE) RSV (PCR) (Negative) SARS-CoV-2 (PCR) (NEGATIVE) 11/29/21 11/30/21 11/30/21 Range/Units 22:42 00:53 04:06 WBC (4.0-10.5) K/mm3 RBC (4.1-5.4) M/mm3 Hgb (12.0-16.0) gm/dl Hct (35-47) % MCV (78-100) fl MCH (26-32) pg MCHC (32-36) g/dl RDW (11.5-14.0) % Plt Count (150-450) K/mm3 MPV (7.5-11.0) fl Gran % (36.0-66.0) % Eos # (Auto) (0-0.5) Absolute Lymphs (auto) (1.0-4.6) Absolute Monos (auto) (0.0-1.3) Lymphocytes % (24.0-44.0) % Monocytes % (0.0-12.0) % Eosinophils % (0.00-5.0) % Basophils % (0.0-0.4) % Absolute Granulocytes (1.4-6.9) Basophils # (0-0.4) PT (9.4-12.5) SECONDS INR (0.8-3.0) APTT (25.1-36.5) SECONDS Sodium (137-145) mmol/L Potassium (3.5-5.1) mmol/L Chloride (98-107) mmol/L Carbon Dioxide (22-30) mmol/L Anion Gap (5-15) MEQ/L BUN (7-17) mg/dL Creatinine (0.52-1.04) mg/dL Estimated GFR ML/MIN Glucose (74-106) mg/dL Calcium (8.4-10.2) mg/dL Total Bilirubin (0.2-1.3) mg/dL AST (14-36) U/L ALT (0-35) U/L Alkaline Phosphatase (38-126) U/L Troponin I < 0.012 < 0.012 (0.000-0.034) ng/mL NT-Pro-B Natriuret Pep (0-900) pg/mL Serum Total Protein (6.3-8.2) g/dL Albumin (3.5-5.0) g/dL Triglycerides (30-150) mg/dL Cholesterol (50-200) mg/dL LDL Cholesterol (30-100) mg/dL HDL Cholesterol (40-60) mg/dL Heart Disease Risk Ratio Influenza Type A Ag NEGATIVE (NEGATIVE) Influenza Type B Ag NEGATIVE (NEGATIVE) RSV (PCR) NEGATIVE (Negative) SARS-CoV-2 (PCR) NEGATIVE (NEGATIVE) 11/30/21 11/30/21 Range/Units 06:40 06:40 WBC (4.0-10.5) K/mm3 RBC (4.1-5.4) M/mm3 Hgb (12.0-16.0) gm/dl Hct (35-47) % MCV (78-100) fl MCH (26-32) pg MCHC (32-36) g/dl RDW (11.5-14.0) % Plt Count (150-450) K/mm3 MPV (7.5-11.0) fl Gran % (36.0-66.0) % Eos # (Auto) (0-0.5) Absolute Lymphs (auto) (1.0-4.6) Absolute Monos (auto) (0.0-1.3) Lymphocytes % (24.0-44.0) % Monocytes % (0.0-12.0) % Eosinophils % (0.00-5.0) % Basophils % (0.0-0.4) % Absolute Granulocytes (1.4-6.9) Basophils # (0-0.4) PT (9.4-12.5) SECONDS INR (0.8-3.0) APTT (25.1-36.5) SECONDS Sodium (137-145) mmol/L Potassium (3.5-5.1) mmol/L Chloride (98-107) mmol/L Carbon Dioxide (22-30) mmol/L Anion Gap (5-15) MEQ/L BUN (7-17) mg/dL Creatinine (0.52-1.04) mg/dL Estimated GFR ML/MIN Glucose (74-106) mg/dL Calcium (8.4-10.2) mg/dL Total Bilirubin (0.2-1.3) mg/dL AST (14-36) U/L ALT (0-35) U/L Alkaline Phosphatase (38-126) U/L Troponin I < 0.012 (0.000-0.034) ng/mL NT-Pro-B Natriuret Pep (0-900) pg/mL Serum Total Protein (6.3-8.2) g/dL Albumin (3.5-5.0) g/dL Triglycerides 108 (30-150) mg/dL Cholesterol 198 (50-200) mg/dL LDL Cholesterol 96 (30-100) mg/dL HDL Cholesterol 79 H (40-60) mg/dL Heart Disease Risk Ratio 2.5 Influenza Type A Ag (NEGATIVE) Influenza Type B Ag (NEGATIVE) RSV (PCR) (Negative) SARS-CoV-2 (PCR) (NEGATIVE) - Radiology Impressions Radiology Exams & Impressions: Radiology Procedures Category Date Time Status CHEST 1 VIEW (PORTABLE) Stat Exams 11/29/21 18:42 Completed CHEST WITH CONTRAST [CT] Stat Exams 11/29/21 19:54 Completed ECHO W/2D AND DOPPLER [US] Routine Exams 12/01/21 23:36 Ordered - Other Procedures and Tests Respiratory Therapy 12/01/21 05:00 EKG DAILY 12/02/21 05:00 EKG DAILY 12/03/21 05:00 EKG DAILY Assessment/Plan (1) Chest pain Current Visit: Yes Status: Acute Qualifiers: Chest pain type: precordial pain Qualified Code(s): R07.2 - Precordial pain Assessment & Plan: Chief Complaint Diagnosis Chest pain rule out ACS Allergies Allergy/AdvReac Type Severity Reaction Status Date / Time No Known Drug Allergies Allergy Verified 11/30/21 01:08 Vital Signs (Last 24 hours) Temp Pulse Pulse Resp BP BP Pulse Ox 11/30/21 08:00 97.8 F 51 L 18 109/54 93 L 11/30/21 06:09 95 11/30/21 04:00 96.9 F 60 20 110/53 94 L 11/30/21 00:15 97.3 F 54 L 16 120/52 95 11/29/21 22:00 54 L 18 120/52 96 11/29/21 21:00 60 14 125/59 94 L 11/29/21 20:04 54 L 18 128/66 96 11/29/21 19:30 52 L 18 126/59 97 11/29/21 18:30 97.3 F 77 58 L 18 127/86 95 Current Medications Generic Name Dose Route Start Last Admin Trade Name Freq PRN Reason Stop Dose Admin Acetaminophen 650 mg 11/29/21 22:20 11/29/21 23:05 Acetaminophen 325 Mg Tablet PO 12/29/21 22:19 650 mg Q4H PRN PRN Administration PAIN AND/OR FEVER Al Hydrox/Mg Hydrox/Simethicone 30 ml 11/29/21 22:20 Mag Hydrox/Al Hydrox/Simeth 30 Ml Udcup PO 12/29/21 22:19 Q4H PRN PRN INDIGESTION Aspirin 325 mg 11/30/21 10:00 Aspirin 325 Mg Tablet.Ec PO 12/30/21 09:59 DAILY [facility] Enoxaparin Sodium 40 mg 11/30/21 10:00 Enoxaparin Sodium 40 Mg/0.4 Ml Syringe SQ 12/30/21 09:59 DAILY [facility] Famotidine 20 mg 11/30/21 10:00 Famotidine 20 Mg/1 Vial IV 12/30/21 09:59 Q12HT [facility] Magnesium Hydroxide 30 - 60 ml 11/29/21 22:20 Magnesium Hydroxide 30 Ml Udcup PO 12/29/21 22:19 QDP PRN CONSTIPATION Nitroglycerin 0.4 mg 11/29/21 22:20 Nitroglycerin 0.4 Mg Tablet Bottle SL 12/29/21 22:19 Q5MIN PRN MR X 3 PRN CHEST PAIN Ondansetron HCl 4 mg 11/29/21 22:20 Ondansetron Hcl 4 Mg/2 Ml Vial IV 12/29/21 22:19 Q4H PRN PRN NAUSEA/VOMITING Senna/Docusate Sodium 2 udtab 11/29/21 22:20 Senna/Docusate Sodium 1 Udtab Tablet PO 12/29/21 22:19 BID PRN PRN CONSTIPATION Intake & Output (Last 24 hours) 11/27/21 11/28/21 11/29/21 11/30/21 11:59 11:59 11:59 11:59 Weight 116.3 kg Laboratory Results (Last 24 hours) 11/30/21 11/30/21 11/30/21 06:40 06:40 04:06 WBC RBC Hgb Hct MCV MCH MCHC RDW Plt Count MPV Gran % Eos # (Auto) Absolute Lymphs (auto) Absolute Monos (auto) Lymphocytes % Monocytes % Eosinophils % Basophils % Absolute Granulocytes Basophils # PT INR APTT Sodium Potassium Chloride Carbon Dioxide Anion Gap BUN Creatinine Estimated GFR Glucose Calcium Total Bilirubin AST ALT Alkaline Phosphatase Troponin I < 0.012 < 0.012 NT-Pro-B Natriuret Pep Serum Total Protein Albumin Triglycerides 108 Cholesterol 198 LDL Cholesterol 96 HDL Cholesterol 79 H Heart Disease Risk Ratio 2.5 Influenza Type A Ag Influenza Type B Ag RSV (PCR) SARS-CoV-2 (PCR) 11/30/21 11/29/21 11/29/21 00:53 22:42 21:41 WBC RBC Hgb Hct MCV MCH MCHC RDW Plt Count MPV Gran % Eos # (Auto) Absolute Lymphs (auto) Absolute Monos (auto) Lymphocytes % Monocytes % Eosinophils % Basophils % Absolute Granulocytes Basophils # PT INR APTT Sodium Potassium Chloride Carbon Dioxide Anion Gap BUN Creatinine Estimated GFR Glucose Calcium Total Bilirubin AST ALT Alkaline Phosphatase Troponin I < 0.012 < 0.012 NT-Pro-B Natriuret Pep Serum Total Protein Albumin Triglycerides Cholesterol LDL Cholesterol HDL Cholesterol Heart Disease Risk Ratio Influenza Type A Ag NEGATIVE Influenza Type B Ag NEGATIVE RSV (PCR) NEGATIVE SARS-CoV-2 (PCR) NEGATIVE 11/29/21 11/29/21 11/29/21 18:55 18:55 18:55 WBC RBC Hgb Hct MCV MCH MCHC RDW Plt Count MPV Gran % Eos # (Auto) Absolute Lymphs (auto) Absolute Monos (auto) Lymphocytes % Monocytes % Eosinophils % Basophils % Absolute Granulocytes Basophils # PT 11.3 INR 0.96 APTT 29.7 Sodium Potassium Chloride Carbon Dioxide Anion Gap BUN Creatinine Estimated GFR Glucose Calcium Total Bilirubin AST ALT Alkaline Phosphatase Troponin I < 0.012 NT-Pro-B Natriuret Pep 172 Serum Total Protein Albumin Triglycerides Cholesterol LDL Cholesterol HDL Cholesterol Heart Disease Risk Ratio Influenza Type A Ag Influenza Type B Ag RSV (PCR) SARS-CoV-2 (PCR) 11/29/21 11/29/21 18:55 18:55 WBC 9.1 RBC 4.30 Hgb 13.6 Hct 41.9 MCV 97.4 MCH 31.6 MCHC 32.5 RDW 13.9 Plt Count 268 MPV 8.9 Gran % 58.4 Eos # (Auto) 0.20 Absolute Lymphs (auto) 2.70 Absolute Monos (auto) 0.85 Lymphocytes % 29.8 Monocytes % 9.4 Eosinophils % 2.2 Basophils % 0.2 Absolute Granulocytes 5.28 Basophils # 0.02 PT INR APTT Sodium 137 Potassium 3.7 Chloride 104 Carbon Dioxide 24 Anion Gap 12.8 BUN 15 Creatinine 0.78 Estimated GFR > 60.0 Glucose 73 L Calcium 9.4 Total Bilirubin 0.60 AST 24 ALT 20 Alkaline Phosphatase 99 Troponin I NT-Pro-B Natriuret Pep Serum Total Protein 6.8 Albumin 4.0 Triglycerides Cholesterol LDL Cholesterol HDL Cholesterol Heart Disease Risk Ratio Influenza Type A Ag Influenza Type B Ag RSV (PCR) SARS-CoV-2 (PCR) Orders (Last 24 hours) Category Date Time Status Bedrest with BRP/BSC ROUTINE Activity 11/29/21 22:20 Active Code Status Order ROUTINE Care 11/29/21 22:20 Active EKG-ER Only STAT Care 11/29/21 18:41 Completed IV Care Q6H Care 11/29/21 22:20 Active IV Insertion STAT Care 11/29/21 18:47 Completed Implement Chest Pain Pathway ROUTINE Care 11/29/21 22:[address] in Observation ROUTINE Care 11/29/21 22:20 Active Law Bhatia, Apply ROUTINE Care 11/29/21 22:20 Active Vital Signs Q4H Care 11/29/21 22:20 Active Weight,Daily 0600 Care 11/29/21 22:20 Active CHEST 1 VIEW (PORTABLE) Stat Exams 11/29/21 18:42 Completed CHEST WITH CONTRAST [CT] Stat Exams 11/29/21 19:54 Completed ECHO W/2D AND DOPPLER [US] Routine Exams 12/01/21 23:36 Ordered CBC W DIFF Stat Lab 11/29/21 18:55 Completed CMP Stat Lab 11/29/21 18:55 Completed LIPID PROFILE AM.LAB Lab 11/30/21 06:40 Completed NT PRO BNP Stat Lab 11/29/21 18:55 Completed PROTIME WITH INR Stat Lab 11/29/21 18:55 Completed PTT Stat Lab 11/29/21 18:55 Completed TROPONIN Q3H Lab 11/29/21 18:55 Completed TROPONIN Q3H Lab 11/29/21 21:41 Completed TROPONIN Q3H Lab 11/30/21 00:53 Completed TROPONIN Q3H Lab 11/30/21 04:06 Completed TROPONIN Q3H Lab 11/30/21 06:40 Completed Acetaminophen 325 mg [Tylenol 325 mg] Med 11/29/21 22:20 Active 650 mg PO Q4H PRN PRN Aspirin EC 325 mg [Ecotrin 325 MG] Med 11/30/21 10:00 Active 325 mg PO DAILY Enoxaparin Sodium [Enoxaparin Sodium] Med 11/30/21 10:00 Active 40 mg SQ DAILY Famotidine 20 mg Vial [Pepcid 20 MG VIAL] Med 11/30/21 10:00 Active 20 mg IV Q12HT Mag Hydrox/Al Hydrox/Simeth [Maalox Es 30 ml Unit Med 11/29/21 22:20 Active Dose] 30 ml PO Q4H PRN PRN Magnesium Hydroxide 30 ml [Milk of Magnesia 30 ml Med 11/29/21 22:20 Active ] 30 - 60 ml PO QDP PRN Nitroglycerin 0.4 mg Tablet [Nitrostat 0.4 MG Tablet Med 11/29/21 22:20 Active ] 0.4 mg SL Q5MIN PRN MR X 3 PRN Ondansetron HCl 4 mg/2 ml [Zofran 4 MG/2 ML VIAL] Med 11/29/21 22:20 Active 4 mg IV Q4H PRN PRN Senna/Docusate Sodium Tab [Senokot-S Tablet] Med 11/29/21 22:20 Active 2 udtab PO BID PRN PRN EKG DAILY RT 12/01/21 05:00 Active EKG DAILY RT 12/02/21 05:00 Active EKG DAILY RT 12/03/21 05:00 Active EKG Q8HX2,QAMX3,PRN RT 11/29/21 22:20 Completed EKG ROUTINE RT 11/30/21 02:41 Completed Code(s): R07.9 - CHEST PAIN, UNSPECIFIED (2) Hypertension Current Visit: Yes Status: Chronic Qualifiers: Hypertension type: primary hypertension Qualified Code(s): I10 - Essential (primary) hypertension Code(s): I10 - ESSENTIAL (PRIMARY) HYPERTENSION
[2021-11-30] MEDS ORDERED: Nitrostat 0.4 MG (ED) SL SCH (09:45)
[2021-11-30] MEDS ORDERED: PIROXICAM 20 MG PO SCH (10:00)
[2021-11-30] MEDS ORDERED: AMLODIPINE BESYLATE PO SCH (10:00)
[2021-11-30] MEDS ORDERED: Toprol Xl 50 MG PO SCH (10:00)
[2021-11-30] MEDS ORDERED: XANAX 1 MG PO SCH (10:00)
[2021-11-30] MEDS ORDERED: Klor Con 10 MEQ PO SCH (10:00)
[2021-11-30] MEDS ORDERED: Pepcid 20 MG VIAL IV SCH (10:00)
[2021-11-30] MEDS ORDERED: Flonase NASAL NS SCH (10:00)
[2021-11-30] MEDS ORDERED: NON-FORMULARY ITEM (Atorvastatin Calcium [Lipitor] 10 MG Tablet) PO SCH (10:00)
[2021-11-30] MEDS ORDERED: VALSARTAN PO SCH (10:00)
[2021-11-30] MEDS ORDERED: ENOXAPARIN SODIUM SQ SCH (10:00)
[2021-11-30] MEDS ORDERED: Ecotrin 325 MG PO SCH (10:00)
[2021-11-30] MEDS ORDERED: [UNRECOGNIZED DRUG - OTHER] PO SCH (10:00)
[2021-11-30] MEDS ORDERED: NORVASC 5 MG PO SCH (10:00)
[2021-11-30] MEDS ORDERED: Imdur 30 MG PO SCH (10:00)
[2021-11-30] MEDS ORDERED: Lasix 40 MG PO SCH (10:00)
[2021-11-30] MEDS ORDERED: HYDROCODONE-ACETAMIN 10-325 MG PO SCH (10:00)
[2021-11-30] MEDS ORDERED: DIOVAN 80 MG PO SCH (10:00)
[2021-11-30] MEDS ORDERED: Zocor 10MG PO SCH (10:00)
[2021-11-30] MEDS ORDERED: MEDICATION INTERVENTION MC SCH (10:30)
--- NOTE | 2021-11-30 10:59 | PCM.DS ---
Discharge Summary Date of Admission: 11/29/21 23:32 Admitting Physician: MARYAM GA Primary Care Provider: AJAY WARREN Allergies Allergies No Known Drug Allergies Allergy (Verified 11/30/21 01:08) Hospital Summary - Hospital Course Hospital Course: Chief Complaint Diagnosis Chest pain rule out ACS Allergies Allergy/AdvReac Type Severity Reaction Status Date / Time No Known Drug Allergies Allergy Verified 11/30/21 01:08 Vital Signs (Last 24 hours) Temp Pulse Pulse Resp BP BP Pulse Ox 11/30/21 08:00 97.8 F 51 L 18 109/54 93 L 11/30/21 06:09 95 11/30/21 04:00 96.9 F 60 20 110/53 94 L 11/30/21 00:15 97.3 F 54 L 16 120/52 95 11/29/21 22:00 54 L 18 120/52 96 11/29/21 21:00 60 14 125/59 94 L 11/29/21 20:04 54 L 18 128/66 96 11/29/21 19:30 52 L 18 126/59 97 11/29/21 18:30 97.3 F 77 58 L 18 127/86 95 Current Medications Generic Name Dose Route Start Last Admin Trade Name Freq PRN Reason Stop Dose Admin Acetaminophen 650 mg 11/29/21 22:20 11/29/21 23:05 Acetaminophen 325 Mg Tablet PO 12/29/21 22:19 650 mg Q4H PRN PRN Administration PAIN AND/OR FEVER Hydrocodone Bitart/Acetaminophen 1 tablet 11/30/21 10:00 11/30/21 10:16 Hydrocodone/Acetamin 10-325 Mg Tablet PO 12/05/21 09:59 1 tablet BID KAYLA Administration Al Hydrox/Mg Hydrox/Simethicone 30 ml 11/29/21 22:20 Mag Hydrox/Al Hydrox/Simeth 30 Ml Udcup PO 12/29/21 22:19 Q4H PRN PRN INDIGESTION Alprazolam 1 mg 11/30/21 10:00 11/30/21 10:16 Alprazolam 1 Mg Tablet PO 12/30/21 09:59 1 mg DAILY KAYLA Administration Amlodipine Besylate 5 mg 11/30/21 10:00 11/30/21 10:16 Amlodipine Besylate 5 Mg Tablet PO 12/30/21 09:59 5 mg DAILY KAYLA Administration Aspirin 325 mg 11/30/21 10:00 11/30/21 10:15 Aspirin 325 Mg Tablet.Ec PO 12/30/21 09:59 325 mg DAILY KAYLA Administration Enoxaparin Sodium 40 mg 11/30/21 10:00 11/30/21 10:15 Enoxaparin Sodium 40 Mg/0.4 Ml Syringe SQ 12/30/21 09:59 40 mg DAILY KAYLA Administration Famotidine 20 mg 11/30/21 10:00 11/30/21 10:15 Famotidine 20 Mg/1 Vial IV 12/30/21 09:59 20 mg Q12HT KAYLA Administration Fluticasone Propionate 0 gm 11/30/21 10:00 11/30/21 10:15 Fluticasone Propionate 16 Gm Bottle Nasal [place] NS 12/30/21 09:59 1 gm DAILY KAYLA Administration Furosemide 40 mg 11/30/21 10:00 11/30/21 10:15 Furosemide 40 Mg Tablet PO 12/30/21 09:59 40 mg DAILY KAYLA Administration Isosorbide Mononitrate 30 mg 11/30/21 10:00 11/30/21 10:10 Isosorbide Mononitrate 30 Mg Tab PO 12/30/21 09:59 Not Given DAILY KAYLA Magnesium Hydroxide 30 - 60 ml 11/29/21 22:20 Magnesium Hydroxide 30 Ml Udcup PO 12/29/21 22:19 QDP PRN CONSTIPATION Metoprolol Succinate 50 mg 11/30/21 10:00 Metoprolol Succinate 50 Mg Tablet.Sa PO 12/30/21 09:59 DAILY KAYLA Miscellaneous Information 1 each 11/30/21 10:30 Medication Intervention 1 Each Each 12/30/21 10:29 .RN TO CHECK KAYLA Nitroglycerin 0.4 mg 11/29/21 22:20 Nitroglycerin 0.4 Mg Tablet Bottle SL 12/29/21 22:19 Q5MIN PRN MR X 3 PRN CHEST PAIN Nitroglycerin 0.4 mg 11/30/21 09:45 Nitroglycerin 0.4 Mg (Ed) 0.4 Mg Tab.Subl SL 12/30/21 09:44 UD KAYLA Ondansetron HCl 4 mg 11/29/21 22:20 Ondansetron Hcl 4 Mg/2 Ml Vial IV 12/29/21 22:19 Q4H PRN PRN NAUSEA/VOMITING Potassium Chloride 10 meq 11/30/21 10:00 11/30/21 10:16 Potassium Chloride 10 Meq Tablet PO 12/30/21 09:59 10 meq DAILY KAYLA Administration Senna/Docusate Sodium 2 udtab 11/29/21 22:20 Senna/Docusate Sodium 1 Udtab Tablet PO 12/29/21 22:19 BID PRN PRN CONSTIPATION Simvastatin 10 mg 11/30/21 10:00 Simvastatin 10 Mg Tablet PO 12/30/21 09:59 DAILY KAYLA Valsartan 320 mg 11/30/21 10:00 Valsartan 80 Mg Tablet PO 12/30/21 09:59 DAILY KAYLA Discontinued Medications Generic Name Dose Route Start Last Admin Trade Name Freq PRN Reason Stop Dose Admin Non-Formulary Medication 1 each 11/30/21 10:00 Amlodipine Besylate/Valsartan [Exforge 5-320 Mg Tablet] PO 12/30/21 09:59 DAILY KAYLA Intake & Output (Last 24 hours) 11/27/21 11/28/21 11/29/21 11/30/21 11:59 11:59 11:59 11:59 Intake Total 240 Balance 240 Weight 114.4 kg Laboratory Results (Last 24 hours) 11/30/21 11/30/21 11/30/21 06:40 06:40 04:06 WBC RBC Hgb Hct MCV MCH MCHC RDW Plt Count MPV Gran % Eos # (Auto) Absolute Lymphs (auto) Absolute Monos (auto) Lymphocytes % Monocytes % Eosinophils % Basophils % Absolute Granulocytes Basophils # PT INR APTT Sodium Potassium Chloride Carbon Dioxide Anion Gap BUN Creatinine Estimated GFR Glucose Calcium Total Bilirubin AST ALT Alkaline Phosphatase Troponin I < 0.012 < 0.012 NT-Pro-B Natriuret Pep Serum Total Protein Albumin Triglycerides 108 Cholesterol 198 LDL Cholesterol 96 HDL Cholesterol 79 H Heart Disease Risk Ratio 2.5 Influenza Type A Ag Influenza Type B Ag RSV (PCR) SARS-CoV-2 (PCR) 11/30/21 11/29/21 11/29/21 00:53 22:42 21:41 WBC RBC Hgb Hct MCV MCH MCHC RDW Plt Count MPV Gran % Eos # (Auto) Absolute Lymphs (auto) Absolute Monos (auto) Lymphocytes % Monocytes % Eosinophils % Basophils % Absolute Granulocytes Basophils # PT INR APTT Sodium Potassium Chloride Carbon Dioxide Anion Gap BUN Creatinine Estimated GFR Glucose Calcium Total Bilirubin AST ALT Alkaline Phosphatase Troponin I < 0.012 < 0.012 NT-Pro-B Natriuret Pep Serum Total Protein Albumin Triglycerides Cholesterol LDL Cholesterol HDL Cholesterol Heart Disease Risk Ratio Influenza Type A Ag NEGATIVE Influenza Type B Ag NEGATIVE RSV (PCR) NEGATIVE SARS-CoV-2 (PCR) NEGATIVE 11/29/21 11/29/21 11/29/21 18:55 18:55 18:55 WBC RBC Hgb Hct MCV MCH MCHC RDW Plt Count MPV Gran % Eos # (Auto) Absolute Lymphs (auto) Absolute Monos (auto) Lymphocytes % Monocytes % Eosinophils % Basophils % Absolute Granulocytes Basophils # PT 11.3 INR 0.96 APTT 29.7 Sodium Potassium Chloride Carbon Dioxide Anion Gap BUN Creatinine Estimated GFR Glucose Calcium Total Bilirubin AST ALT Alkaline Phosphatase Troponin I < 0.012 NT-Pro-B Natriuret Pep 172 Serum Total Protein Albumin Triglycerides Cholesterol LDL Cholesterol HDL Cholesterol Heart Disease Risk Ratio Influenza Type A Ag Influenza Type B Ag RSV (PCR) SARS-CoV-2 (PCR) 11/29/21 11/29/21 18:55 18:55 WBC 9.1 RBC 4.30 Hgb 13.6 Hct 41.9 MCV 97.4 MCH 31.6 MCHC 32.5 RDW 13.9 Plt Count 268 MPV 8.9 Gran % 58.4 Eos # (Auto) 0.20 Absolute Lymphs (auto) 2.70 Absolute Monos (auto) 0.85 Lymphocytes % 29.8 Monocytes % 9.4 Eosinophils % 2.2 Basophils % 0.2 Absolute Granulocytes 5.28 Basophils # 0.02 PT INR APTT Sodium 137 Potassium 3.7 Chloride 104 Carbon Dioxide 24 Anion Gap 12.8 BUN 15 Creatinine 0.78 Estimated GFR > 60.0 Glucose 73 L Calcium 9.4 Total Bilirubin 0.60 AST 24 ALT 20 Alkaline Phosphatase 99 Troponin I NT-Pro-B Natriuret Pep Serum Total Protein 6.8 Albumin 4.0 Triglycerides Cholesterol LDL Cholesterol HDL Cholesterol Heart Disease Risk Ratio Influenza Type A Ag Influenza Type B Ag RSV (PCR) SARS-CoV-2 (PCR) Orders (Last 24 hours) Category Date Time Status Bedrest with BRP/BSC ROUTINE Activity 11/29/21 22:20 Active Code Status Order ROUTINE Care 11/29/21 22:20 Active EKG-ER Only STAT Care 11/29/21 18:41 Completed IV Care Q6H Care 11/29/21 22:20 Active IV Insertion STAT Care 11/29/21 18:47 Completed Implement Chest Pain Pathway ROUTINE Care 11/29/21 22:[address] in Observation ROUTINE Care 11/29/21 22:20 Active Ana Esc[place] ROUTINE Care 11/29/21 22:20 Active Telemetry q6h Care 11/29/21 23:32 Active Vital Signs Q4H Care 11/29/21 22:20 Active Weight,Daily 0600 Care 11/29/21 22:20 Active CHEST 1 VIEW (PORTABLE) Stat Exams 11/29/21 18:42 Completed CHEST WITH CONTRAST [CT] Stat Exams 11/29/21 19:54 Completed ECHO W/2D AND DOPPLER [US] Routine Exams 12/01/21 23:36 Ordered CBC W DIFF Stat Lab 11/29/21 18:55 Completed CMP Stat Lab 11/29/21 18:55 Completed LIPID PROFILE AM.LAB Lab 11/30/21 06:40 Completed NT PRO BNP Stat Lab 11/29/21 18:55 Completed PROTIME WITH INR Stat Lab 11/29/21 18:55 Completed PTT Stat Lab 11/29/21 18:55 Completed TROPONIN Q3H Lab 11/29/21 18:55 Completed TROPONIN Q3H Lab 11/29/21 21:41 Completed TROPONIN Q3H Lab 11/30/21 00:53 Completed TROPONIN Q3H Lab 11/30/21 04:06 Completed TROPONIN Q3H Lab 11/30/21 06:40 Completed ALPRAZolam 1 MG [Xanax 1 mg] Med 11/30/21 10:00 Active 1 mg PO DAILY Acetaminophen 325 mg [Tylenol 325 mg] Med 11/29/21 22:20 Active 650 mg PO Q4H PRN PRN Amlodipine Besylate 5 mg [Norvasc 5 mg] Med 11/30/21 10:00 Active 5 mg PO DAILY Amlodipine Besylate/Valsartan [Exforge 5-320 mg Tablet] Med 11/30/21 10:00 Discontinued 1 each PO DAILY Aspirin EC 325 mg [Ecotrin 325 MG] Med 11/30/21 10:00 Active 325 mg PO DAILY Enoxaparin Sodium [Enoxaparin Sodium] Med 11/30/21 10:00 Active 40 mg SQ DAILY Famotidine 20 mg Vial [Pepcid 20 MG VIAL] Med 11/30/21 10:00 Active 20 mg IV Q12HT Fluticasone Propionate [Flonase NASAL] Med 11/30/21 10:00 Active 0 gm NS DAILY Furosemide 40 mg [Lasix 40 MG] Med 11/30/21 10:00 Active 40 mg PO DAILY Hydrocodone/Acetaminophen [Hydrocodone-Acetamin 10-325 Med 11/30/21 10:00 Active mg] 1 tablet PO BID Isosorbide Mononitrate 30 mg [Imdur 30 MG] Med 11/30/21 10:00 Active 30 mg PO DAILY Mag Hydrox/Al Hydrox/Simeth [Maalox Es 30 ml Unit Med 11/29/21 22:20 Active Dose] 30 ml PO Q4H PRN PRN Magnesium Hydroxide 30 ml [Milk of Magnesia 30 ml Med 11/29/21 22:20 A ctive ] 30 - 60 ml PO QDP PRN Medication Intervention Med 11/30/21 10:30 Active 1 each MC .RN TO CHECK Metoprolol Succinate 50 mg [Toprol Xl 50 MG] Med 11/30/21 10:00 Active 50 mg PO DAILY Nitroglycerin 0.4 mg (Ed) [Nitrostat 0.4 MG (ED)] Med 11/30/21 09:45 Active 0.4 mg SL UD Nitroglycerin 0.4 mg Tablet [Nitrostat 0.4 MG Tablet Med 11/29/21 22:20 Active ] 0.4 mg SL Q5MIN PRN MR X 3 PRN Ondansetron HCl 4 mg/2 ml [Zofran 4 MG/2 ML VIAL] Med 11/29/21 22:20 Active 4 mg IV Q4H PRN PRN Potassium Chloride 10 Meq Tab* [Klor Con 10 MEQ] Med 11/30/21 10:00 Active 10 meq PO DAILY Senna/Docusate Sodium Tab [Senokot-S Tablet] Med 11/29/21 22:20 Active 2 udtab PO BID PRN PRN Simvastatin 10 mg [Zocor 10MG] Med 11/30/21 10:00 Active 10 mg PO DAILY Valsartan 80 mg [Diovan 80 mg] Med 11/30/21 10:00 Active 320 mg PO DAILY EKG DAILY RT 12/01/21 05:00 Active EKG DAILY RT 12/02/21 05:00 Active EKG DAILY RT 12/03/21 05:00 Active EKG Q8HX2,QAMX3,PRN RT 11/29/21 22:20 Completed EKG ROUTINE RT 11/30/21 02:41 Completed - Vitals & Intake/Output Vital Signs: Vital Signs Temperature 97.8 F 11/30/21 08:00 Pulse Rate 51 L 11/30/21 08:00 Respiratory Rate 18 11/30/21 08:00 Blood Pressure 109/54 11/30/21 08:00 O2 Sat by Pulse Oximetry 93 L 11/30/21 08:00 Intake & Output: Intake & Output 11/27/21 11/28/21 11/29/21 11/30/21 11:59 11:59 11:59 11:59 Intake Total 240 Balance 240 Weight 114.4 kg - Lab Result Diagrams: 11/29/21 18:55 11/29/21 18:55 Lab Results-Last 24 Hrs: Lab Results-Last 24 Hours 11/29/21 11/29/21 11/29/21 Range/Units 18:55 18:55 18:55 WBC 9.1 (4.0-10.5) K/mm3 RBC 4.30 (4.1-5.4) M/mm3 Hgb 13.6 (12.0-16.0) gm/dl Hct 41.9 (35-47) % MCV 97.4 (78-100) fl MCH 31.6 (26-32) pg MCHC 32.5 (32-36) g/dl RDW 13.9 (11.5-14.0) % Plt Count 268 (150-450) K/mm3 MPV 8.9 (7.5-11.0) fl Gran % 58.4 (36.0-66.0) % Eos # (Auto) 0.20 (0-0.5) Absolute Lymphs (auto) 2.70 (1.0-4.6) Absolute Monos (auto) 0.85 (0.0-1.3) Lymphocytes % 29.8 (24.0-44.0) % Monocytes % 9.4 (0.0-12.0) % Eosinophils % 2.2 (0.00-5.0) % Basophils % 0.2 (0.0-0.4) % Absolute Granulocytes 5.28 (1.4-6.9) Basophils # 0.02 (0-0.4) PT 11.3 (9.4-12.5) SECONDS INR 0.96 (0.8-3.0) APTT 29.7 (25.1-36.5) SECONDS Sodium 137 (137-145) mmol/L Potassium 3.7 (3.5-5.1) mmol/L Chloride 104 (98-107) mmol/L Carbon Dioxide 24 (22-30) mmol/L Anion Gap 12.8 (5-15) MEQ/L BUN 15 (7-17) mg/dL Creatinine 0.78 (0.52-1.04) mg/dL Estimated GFR > 60.0 ML/MIN Glucose 73 L (74-106) mg/dL Calcium 9.4 (8.4-10.2) mg/dL Total Bilirubin 0.60 (0.2-1.3) mg/dL AST 24 (14-36) U/L ALT 20 (0-35) U/L Alkaline Phosphatase 99 (38-126) U/L Troponin I (0.000-0.034) ng/mL NT-Pro-B Natriuret Pep (0-900) pg/mL Serum Total Protein 6.8 (6.3-8.2) g/dL Albumin 4.0 (3.5-5.0) g/dL Triglycerides (30-150) mg/dL Cholesterol (50-200) mg/dL LDL Cholesterol (30-100) mg/dL HDL Cholesterol (40-60) mg/dL Heart Disease Risk Ratio Influenza Type A Ag (NEGATIVE) Influenza Type B Ag (NEGATIVE) RSV (PCR) (Negative) SARS-CoV-2 (PCR) (NEGATIVE) 11/29/21 11/29/21 11/29/21 Range/Units 18:55 18:55 21:41 WBC (4.0-10.5) K/mm3 RBC (4.1-5.4) M/mm3 Hgb (12.0-16.0) gm/dl Hct (35-47) % MCV (78-100) fl MCH (26-32) pg MCHC (32-36) g/dl RDW (11.5-14.0) % Plt Count (150-450) K/mm3 MPV (7.5-11.0) fl Gran % (36.0-66.0) % Eos # (Auto) (0-0.5) Absolute Lymphs (auto) (1.0-4.6) Absolute Monos (auto) (0.0-1.3) Lymphocytes % (24.0-44.0) % Monocytes % (0.0-12.0) % Eosinophils % (0.00-5.0) % Basophils % (0.0-0.4) % Absolute Granulocytes (1.4-6.9) Basophils # (0-0.4) PT (9.4-12.5) SECONDS INR (0.8-3.0) APTT (25.1-36.5) SECONDS Sodium (137-145) mmol/L Potassium (3.5-5.1) mmol/L Chloride (98-107) mmol/L Carbon Dioxide (22-30) mmol/L Anion Gap (5-15) MEQ/L BUN (7-17) mg/dL Creatinine (0.52-1.04) mg/dL Estimated GFR ML/MIN Glucose (74-106) mg/dL Calcium (8.4-10.2) mg/dL Total Bilirubin (0.2-1.3) mg/dL AST (14-36) U/L ALT (0-35) U/L Alkaline Phosphatase (38-126) U/L Troponin I < 0.012 < 0.012 (0.000-0.034) ng/mL NT-Pro-B Natriuret Pep 172 (0-900) pg/mL Serum Total Protein (6.3-8.2) g/dL Albumin (3.5-5.0) g/dL Triglycerides (30-150) mg/dL Cholesterol (50-200) mg/dL LDL Cholesterol (30-100) mg/dL HDL Cholesterol (40-60) mg/dL Heart Disease Risk Ratio Influenza Type A Ag (NEGATIVE) Influenza Type B Ag (NEGATIVE) RSV (PCR) (Negative) SARS-CoV-2 (PCR) (NEGATIVE) 11/29/21 11/30/21 11/30/21 Range/Units 22:42 00:53 04:06 WBC (4.0-10.5) K/mm3 RBC (4.1-5.4) M/mm3 Hgb (12.0-16.0) gm/dl Hct (35-47) % MCV (78-100) fl MCH (26-32) pg MCHC (32-36) g/dl RDW (11.5-14.0) % Plt Count (150-450) K/mm3 MPV (7.5-11.0) fl Gran % (36.0-66.0) % Eos # (Auto) (0-0.5) Absolute Lymphs (auto) (1.0-4.6) Absolute Monos (auto) (0.0-1.3) Lymphocytes % (24.0-44.0) % Monocytes % (0.0-12.0) % Eosinophils % (0.00-5.0) % Basophils % (0.0-0.4) % Absolute Granulocytes (1.4-6.9) Basophils # (0-0.4) PT (9.4-12.5) SECONDS INR (0.8-3.0) APTT (25.1-36.5) SECONDS Sodium (137-145) mmol/L Potassium (3.5-5.1) mmol/L Chloride (98-107) mmol/L Carbon Dioxide (22-30) mmol/L Anion Gap (5-15) MEQ/L BUN (7-17) mg/dL Creatinine (0.52-1.04) mg/dL Estimated GFR ML/MIN Glucose (74-106) mg/dL Calcium (8.4-10.2) mg/dL Total Bilirubin (0.2-1.3) mg/dL AST (14-36) U/L ALT (0-35) U/L Alkaline Phosphatase (38-126) U/L Troponin I < 0.012 < 0.012 (0.000-0.034) ng/mL NT-Pro-B Natriuret Pep (0-900) pg/mL Serum Total Protein (6.3-8.2) g/dL Albumin (3.5-5.0) g/dL Triglycerides (30-150) mg/dL Cholesterol (50-200) mg/dL LDL Cholesterol (30-100) mg/dL HDL Cholesterol (40-60) mg/dL Heart Disease Risk Ratio Influenza Type A Ag NEGATIVE (NEGATIVE) Influenza Type B Ag NEGATIVE (NEGATIVE) RSV (PCR) NEGATIVE (Negative) SARS-CoV-2 (PCR) NEGATIVE (NEGATIVE) 11/30/21 11/30/21 Range/Units 06:40 06:40 WBC (4.0-10.5) K/mm3 RBC (4.1-5.4) M/mm3 Hgb (12.0-16.0) gm/dl Hct (35-47) % MCV (78-100) fl MCH (26-32) pg MCHC (32-36) g/dl RDW (11.5-14.0) % Plt Count (150-450) K/mm3 MPV (7.5-11.0) fl Gran % (36.0-66.0) % Eos # (Auto) (0-0.5) Absolute Lymphs (auto) (1.0-4.6) Absolute Monos (auto) (0.0-1.3) Lymphocytes % (24.0-44.0) % Monocytes % (0.0-12.0) % Eosinophils % (0.00-5.0) % Basophils % (0.0-0.4) % Absolute Granulocytes (1.4-6.9) Basophils # (0-0.4) PT (9.4-12.5) SECONDS INR (0.8-3.0) APTT (25.1-36.5) SECONDS Sodium (137-145) mmol/L Potassium (3.5-5.1) mmol/L Chloride (98-107) mmol/L Carbon Dioxide (22-30) mmol/L Anion Gap (5-15) MEQ/L BUN (7-17) mg/dL Creatinine (0.52-1.04) mg/dL Estimated GFR ML/MIN Glucose (74-106) mg/dL Calcium (8.4-10.2) mg/dL Total Bilirubin (0.2-1.3) mg/dL AST (14-36) U/L ALT (0-35) U/L Alkaline Phosphatase (38-126) U/L Troponin I < 0.012 (0.000-0.034) ng/mL NT-Pro-B Natriuret Pep (0-900) pg/mL Serum Total Protein (6.3-8.2) g/dL Albumin (3.5-5.0) g/dL Triglycerides 108 (30-150) mg/dL Cholesterol 198 (50-200) mg/dL LDL Cholesterol 96 (30-100) mg/dL HDL Cholesterol 79 H (40-60) mg/dL Heart Disease Risk Ratio 2.5 Influenza Type A Ag (NEGATIVE) Influenza Type B Ag (NEGATIVE) RSV (PCR) (Negative) SARS-CoV-2 (PCR) (NEGATIVE) - Radiology Exams Ordered Rad Exams-Entire Visit: Radiology Procedures Category Date Time Status CHEST 1 VIEW (PORTABLE) Stat Exams 11/29/21 18:42 Completed CHEST WITH CONTRAST [CT] Stat Exams 11/29/21 19:54 Completed ECHO W/2D AND DOPPLER [US] Routine Exams 12/01/21 23:36 Ordered - Procedures and Test Procedures and Tests throughout Hospitalization: Therapy Orders & Screens 11/29/21 22:20 EKG Q8HX2,QAMX3,PRN Comment: 11/30/21 02:41 EKG ROUTINE Comment: Diagnosis: Chest pain rule out ACS 12/01/21 05:00 EKG DAILY Comment: Diagnosis: Chest pain rule out ACS 12/02/21 05:00 EKG DAILY Comment: Diagnosis: Chest pain rule out ACS 12/03/21 05:00 EKG DAILY Comment: Diagnosis: Chest pain rule out ACS Discharge Exam General Appearance: no apparent distress, alert Neurologic Exam: alert, oriented x 3, cooperative, normal mood/affect, nml cerebellar function, sensation nml, No motor deficits Eye Exam: PERRL, EOMI, eyes nml inspection Ears, Nose, Throat Exam: normal ENT inspection, pharynx normal, moist mucous membranes Neck Exam: normal inspection, non-tender, supple, full range of motion Respiratory Exam: normal breath sounds, lungs clear, No respiratory distress Cardiovascular Exam: regular rate/rhythm, normal heart sounds Gastrointestinal/Abdomen Exam: soft, No tenderness, No mass Pelvic Exam: deferred Rectal Exam: deferred Back Exam: normal inspection, normal range of motion, No CVA tenderness, No vertebral tenderness Extremity Exam: normal inspection, normal range of motion Skin Exam: normal color, warm, dry Final Diagnosis/Problem List - Final Discharge Diagnosis/Problem (1) Chest pain Current Visit: Yes Status: Resolved Code(s): R07.9 - CHEST PAIN, UNSPECIFIED (2) Hypertension Current Visit: Yes Status: Chronic Code(s): I10 - ESSENTIAL (PRIMARY) HYPERTENSION - Discharge Discharge Date: 11/30/21 Disposition: Home, Self-Care Condition: Stable Prescriptions: Continue Furosemide 40 mg [Lasix 40 MG] 40 mg PO DAILY Hydrocodone/APAP 10/325 mg [[place] 10/325 MG TableT] 1 tab PO BID Fluticasone Propionate [Flonase NASAL] 2 sprays NS DAILY ALPRAZolam 1 MG [Xanax 1 mg] 1 mg PO DAILY Isosorbide Mononitrate 30 mg [Imdur 30 MG] 30 mg PO DAILY Atorvastatin Calcium [Lipitor] 10 mg PO DAILY Potassium Chloride 10 Meq Tab* [Klor Con 10 MEQ] 10 meq PO DAILY Piroxicam [Feldene] 20 mg PO DAILY Amlodipine Besylate/Valsartan [Exforge 5-320 mg Tablet] 1 each PO DAILY Metoprolol Succinate 50 mg [Toprol Xl 50 MG] 50 mg PO DAILY Nitroglycerin 0.4 mg (Ed) [Nitrostat 0.4 MG (ED)] 0.4 mg SL UD Follow up with: AJAY WARREN [Primary Care Provider] - 5 Days
== END 2021-11-30 11:55 | disposition home or self-care (01) ==
LOC: ED 18:28 → MED SURG 23:32
PROVIDERS: ADMIT General Practice; ATTEND General Practice
DX: R07.9 Chest pain, unspecified (principal); I10 Essential (primary) hypertension; Z79.899 Other long term (current) drug therapy; Z20.828 Contact with and (suspected) exposure to other viral communicable diseases
CPT/HCPCS: 0241U; 36000; 36415; 71045; 71260; 80053; 80061; 83721; 83880; 84484; 85025; 85610; 85730; 93005; 93268; 99284; G0378; J1650; A9270-GY

== ENCOUNTER 2023-02-22 08:59 | Day surgery (SDC) | payer MEDICARE ==
--- NOTE | 2023-02-22 07:58 | HP ---
DATE OF SURGERY: 02/22/2023 HISTORY OF PRESENT ILLNESS: The patient is a 67-year-old with history of polyps. Colonoscopy a year ago no bloody stools. Urgency after eating at times. No new pain. Family history grandma and great-aunt with colon cancer. She has a daughter that had some problems. PAST MEDICAL HISTORY: Hypertension, anxiety, depression, heart disease. PAST SURGICAL HISTORY: T&A. Cardiac catheterization. section. Foot surgery. Bilateral tubal. MEDICATIONS: Methocarbamol, hydrocodone, Xanax, metoprolol, gabapentin, potassium chloride, furosemide, losartan, amlodipine/valsartan. ALLERGIES: NKDA. FAMILY HISTORY: Father with heart disease. She has a family history of colon cancer. SOCIAL HISTORY: No smoking. Occasional alcohol use. REVIEW OF SYSTEMS: Fourteen systems reviewed. No chest pain or palpitations currently. PHYSICAL EXAMINATION: Height 5'5". Weight 248. BMI 41. GENERAL: No acute distress. HEENT: Sclerae nonicteric. EOMI. Oropharynx mucous membranes moist. NECK: No JVD. CHEST: Equal excursion, nonlabored breathing. CVS: Regular rate and rhythm. ABDOMEN: Soft, obese. EXTREMITIES: No edema or cyanosis. NEURO: Alert, oriented, moving extremities symmetrically. RECTAL: Deferred timed to endoscopy exam. PSYCH: Appropriate mood and affect. SKIN: Dry. IMPRESSION: History of polyps, family history of colon cancer, needs follow up screening colonoscopy. She was shown the risk sheet, explained the procedure in detail including but not limited to bleeding or infection, risk of bowel injury or perforation, risk of missed or nondiagnosis or incomplete exam possibly requiring barium enema, other studies or procedures, general risk of anesthesia or sedation, risk of bowel prep but not limited to. Continue medical management for heart disease, anxiety, depression. She understands and agrees to the planned procedure and will proceed with outpatient follow up screening colonoscopy.
[2023-02-22] MEDS ORDERED: Lactated Ringers 1,000 ML IV ONE (09:35)
[2023-02-22] MEDS ORDERED: Lactated Ringers 1,000 ML IV SCH (10:00)
[2023-02-22] MEDS ORDERED: Xylocaine-Mpf 2% 5 Ml Vial ONE (11:16)
[2023-02-22] MEDS ORDERED: DIPRIVAN 200 MG/20 ML IV ONE ×2 (11:16→11:27)
[2023-02-22 12:15] VITALS: O2SAT 97
[2023-02-22 12:21] VITALS: BP 130/78; PULSE 60
--- NOTE | 2023-02-23 08:41 | OP ---
SURGERY DATE/TIME: 02/22/2023 1117 PREOPERATIVE DIAGNOSIS: History of polyps, family history of colon cancer, need for follow up screening colonoscopy. POSTOPERATIVE DIAGNOSES: 1) Colon polyps cecum, sigmoid colon and rectosigmoid colon. 2) Mild diverticulosis left colon. 3) Good prep. 4) ASA Class III. 5) Withdrawal time approximately nine minutes. PROCEDURES: 1) Colonoscopy to cecum. 2) Hot snare polypectomy cecal polyp (approximately 5 to 6 mm in size) removed with hot snare polypectomy. 3) Hot snare polypectomy approximately 3 mm sigmoid colon polyp. 4) Hot snare polypectomy approximately 6 to 7 mm rectosigmoid colon polyp removed in piecemeal fashion. SURGEON: Dr. Julio Mccullough. ANESTHESIA: MAC. ESTIMATED BLOOD LOSS: Minimal. INDICATIONS: As noted above. Risks and benefits explained in detail but not limited to and consent obtained. DESCRIPTION OF PROCEDURE AND FINDINGS: The patient is taken to the endoscopy room. MAC anesthesia induced. After official time out and no disagreement with planned procedure, digital rectal exam did not reveal any rectal masses. Video colonoscope inserted and passed up through the slightly tortuous sigmoid, descending, transverse and ascending colon. With the external pressure the scope was able to be passed around to the cecum. Appendiceal orifice and valve well visualized. Prep overall was good with a little bit liquidy throughout the colon but overall good prep. The scope is slowly and carefully withdrawn over the next nine minutes. There was in the cecum right across from the bowel 5 to 6 mm polyp removed with hot snare polypectomy appeared to be removed intact and passed off. The scope is carefully withdrawn through the colon again over the next nine minutes. There was some small to medium sized diverticula in the left colon. There was a 3 mm sigmoid colon polyp removed with hot snare polypectomy. Otherwise in the rectosigmoid colon a 6 or 7 mm polyp removed with hot snare polypectomy this required removing this in a couple of pieces in piecemeal fashion hot snare with brief bursts of cautery. There had been scant ooze at the site. It appeared to have good hemostasis but it was felt that it did not warrant a clip at this point. No signs of any lesions in the rectum. The scope is withdrawn. The patient tolerated the procedure well. I will see if she has family to discuss findings with. She is to avoid any aspirin, NSAID or blood thinners for the next seven days.
== END 2023-02-22 12:30 | disposition home or self-care (01) ==
LOC: SDC 08:59
PROVIDERS: ATTEND Surgery
DX: Z12.11 Encounter for screening for malignant neoplasm of colon (principal); Z09 Encounter for follow-up examination after completed treatment for conditions other than malignant neoplasm; Z86.010 Personal history of colon polyps; Z80.0 Family history of malignant neoplasm of digestive organs; K57.30 Diverticulosis of large intestine without perforation or abscess without bleeding; D12.7 Benign neoplasm of rectosigmoid junction; D12.0 Benign neoplasm of cecum; D12.5 Benign neoplasm of sigmoid colon
CPT/HCPCS: J2704

== ENCOUNTER 2024-07-18 14:11 | Emergency (ER) | payer MEDICARE ==
--- NOTE | 2024-07-18 14:33 | ERPHSYRPT ---
- History of Present Illness Time Seen by Provider: 07/18/24 14:33 Source: patient Exam Limitations: no limitations Physician History: Six 8-year-old female presents to our ED for evaluation of pain to right hand. Patient states she was outdoors when she fell. Patient fell on outstretched arm. Injury occurred 3 days ago. Patient observed that her hand has been getting progressively more swollen. Pain described as an ache that is localized. No radiation. Pain worse with movement and palpation. Pain improved with rest. Patient otherwise feels well. No LOC. No neck pain. Cervical spine cleared clinically. She voices no other complaints or concerns at this time. Portions of this note were created with voice recognition technology. There may be grammatical, spelling, punctuation or sound alike errors Occurred: days ago (3 days ago) Method of Injury: fell Quality: constant Severity of Pain-Max: moderate Severity of Pain-Current: mild Extremities Pain Location: wrist: right Modifying Factors: Improves With: movement, other Associated Symptoms: none Allergies/Adverse Reactions: No Known Drug Allergies Allergy (Verified 07/18/24 14:19) Home Medications: Furosemide 40 mg [Lasix 40 MG] 40 mg PO DAILY 08/14/12 [History] ALPRAZolam 1 MG [Xanax 1 mg] 2 mg PO DAILY 10/07/16 [History] Amlodipine Besylate/Valsartan [Exforge 5-320 mg Tablet] 1 each PO DAILY 10/07/16 [History] Metoprolol Succinate 50 mg [Toprol Xl 50 MG] 50 mg PO DAILY 10/07/16 [History] Potassium Chloride Tab* [Klor Con] 10 meq PO DAILY 10/07/16 [History] Hydroxyzine HCl 25 mg [Atarax 25 mg] 50 mg PO DAILY 02/03/23 [History] Atorvastatin Calcium 10 mg PO DAILY 02/22/23 [History] Hydrocodone/Acetaminophen [Hydrocodone-Acetamin 5-325 mg] 1 tab PO BID 07/18/24 [History] Hx Tetanus, Diphtheria Vaccination/Date Given: No Hx Influenza Vaccination/Date Given: Yes (2020) Hx Pneumococcal Vaccination/Date Given: No - Review of Systems Constitutional: No Symptoms, No Fever, No Chills Eyes: No Symptoms Ears, Nose, & Throat: No Symptoms Respiratory: No Symptoms, No Cough, No Dyspnea Cardiac: No Symptoms, No Chest Pain, No Edema, No Syncope Abdominal/Gastrointestinal: No Symptoms, No Abdominal Pain, No Nausea, No Vomiting, No Diarrhea Genitourinary Symptoms: No Symptoms, No Dysuria Musculoskeletal: No Symptoms, No Back Pain, No Neck Pain Skin: No Symptoms, No Rash Neurological: No Symptoms, No Dizziness, No Focal Weakness, No Sensory Changes Psychological: No Symptoms Endocrine: No Symptoms Hematologic/Lymphatic: No Symptoms Immunological/Allergic: No Symptoms All Other Systems: Reviewed and Negative - Past Medical History Pertinent Past Medical History: Yes Neurological History: No Pertinent History ENT History: No Pertinent History Cardiac History: Hypertension Respiratory History: Sleep Apnea Endocrine Medical History: No Pertinent History Musculoskeletal History: Degenerative Disk Disease, Osteoarthritis GI Medical History: No Pertinent History History: No Pertinent History Psycho-Social History: Anxiety Female Reproductive Disorders: No Pertinent History Other Medical History: PATIENT REPORTS CHRONIC ISSUES WITH LOW BACK PAIN. ALSO KNEES AND HIPS HAVE OSTEOARTHRITIS - PER PATIENT "BONE ON BONE". HX SX LEFT FOOT DUE TO OA - FUSION - Past Surgical History Past Surgical History: Yes Neuro Surgical History: No Pertinent History Cardiac: Cardiac Catheterization Respiratory: No Pertinent History Gastrointestinal: No Pertinent History Genitourinary: No Pertinent History Musculoskeletal: Other Female Surgical History: Section, Tubal Ligation Other Surgical History: foot surgery Significant Family History: no pertinent family hx - Social History Smoking Status: Never smoker Exposure to second hand smoke: Yes Drug Use: none Patient Lives Alone: Yes - Nursing Vital Signs Nursing Vital Signs: Initial Vital Signs Temperature 97.8 F 07/18/24 14:24 Pulse Rate 65 07/18/24 14:24 Respiratory Rate 20 07/18/24 14:24 Blood Pressure 132/71 07/18/24 14:24 O2 Sat by Pulse Oximetry 98 07/18/24 14:24 Pain Scale Pain Intensity 9 - Physical Exam General Appearance: no apparent distress, alert Eyes, Ears, Nose, Throat Exam: moist mucous membranes Neck Exam: non-tender, supple Cardiovascular/Respiratory Exam: chest non-tender, normal breath sounds, regular rate/rhythm, no respiratory distress Abdominal Exam: non-tender, No guarding Back Exam: normal inspection, No vertebral tenderness Shoulder Exam: normal inspection Elbow/Forearm Exam: normal inspection Wrist Exam: swelling (Decreased range of motion. Bony tenderness at radial and ulnar styloid. Overlying soft tissue intact. The involved extremities neurovascular tact distally compartments are soft cap refill less than 2 seconds.) Hand Exam: normal ROM, soft tissue tenderness (Soft tissue swelling and tenderness. The involved extremities neurovascular intact distally compartments are soft cap refill less than 2 seconds) Neuro/Tendon Exam: normal sensation, normal motor functions Mental Status Exam: alert, oriented x 3, cooperative Skin Exam: normal color, warm, dry SpO2 Interpretation: normal SpO2: 98 O2 Delivery: Room Air - Course Nursing assessment & vital signs reviewed: Yes - Radiology Exams Hand X-ray Interpretation: Teleradiologist Report (Distal radius fracture, fracture of the base of the ulnar styloid) Forearm X-ray Interpretation: Teleradiologist Report (Distal radius fracture, fracture base ulnar styloid) Ordered Tests: Active Orders 24 hr Category Date Time Status FOREARM Stat Exams 07/18/24 14:23 Completed HAND (MINIMUM 3 VIEWS) Stat Exams 07/18/24 14:23 Completed Medication Summary Discontinued Medications Generic Name Dose Route Start Last Admin Trade Name Freq PRN Reason Stop Dose Admin Ketorolac Tromethamine 30 mg 07/18/24 14:42 07/18/24 14:50 Ketorolac Tromethamine 30 Mg/Ml Inj IM 07/18/24 14:43 30 mg STAT ONE Administration Ketorolac Tromethamine Confirm 07/18/24 14:49 Ketorolac Tromethamine 30 Mg/Ml Inj Administered 07/18/24 14:50 Dose 30 mg .ROUTE .STK-MED ONE - Progress Progress: improved Progress Note: 68-year-old female presents to our ED for evaluation of hand swelling wrist and distal forearm pain status post fall on outstretched hand 3 days ago. Physical exam reveals tenderness and guarded range of motion at the right wrist. Overlying soft tissue intact. No open or draining lesions. Physical exam otherwise unremarkable. X-ray reveals a fracture of the ulnar styloid and distal radius. Patient placed in a sugar-tong splint. Right upper extremity sling applied. Patient received IM Toradol for pain control. Pain is well- controlled at this time. No indication for further workup. We will refer patient to the orthopedic clinic for further evaluation and treatment. Patient agrees to follow-up with the orthopedic clinic tomorrow for reevaluation. She voices no other complaints or concerns at this time. Portions of this note were created with voice recognition technology. There may be grammatical, spelling, punctuation or sound alike errors Complexity of problem addressed is moderate acute complicated. No critical care time. Complexity of data reviewed and analyzed is moderate. Test ordered chest reviewed results analyzed and correlated clinically with history and physical exam. Risk of complication and or risk of morbidity/mortality of patient management is low. Vital stable. Time spent to discharge patient approximately 15 minutes. Plan of care established for shared decision making. No social determinants of health present to impede follow-up. Portions of this note were created with voice recognition technology. There may be grammatical, spelling, punctuation or sound alike errors 07/18/24 15:05 Counseled pt/family regarding: diagnosis, need for follow-up, rad results - Departure Departure Disposition: Home Clinical Impression: Fall, Fracture of ulnar styloid, Distal radius fracture Condition: Stable Critical Care Time: No Referrals: AJAY WARREN [Primary Care Provider] - Follow up/PCP as directed Additional Instructions: Discharge/Care Plan IRASEMA KOLB was seen on 07/18/24 in the Emergency Room. The patient was counseled regarding Diagnosis,Lab results, Imaging studies, need for follow up and when to return to the Emergency Room. Prescriptions given: Discharge Note I have spoken with the patient and/or caregivers. I have explained the patient's condition, diagnosis and treatment plan based on the information available to me at this time. I have answered the patient's and/or caregiver's questions and addressed any concerns. The patient and/or caregivers have as good understanding of the patient's diagnosis, condition and treatment plan as can be expected at this point. The vital signs have been stable. The patient's condition is stable and appropriate for discharge from the emergency department. The patient will pursue further outpatient evaluation with the primary care physician or other designated or consulting physician as outlined in the discharge instructions. The patient and/or caregivers are agreeable to this plan of care and follow-up instructions have been explained in detail. The patient and/or caregivers have received these instruction. The patient/and or caregivers are aware that any significant change in condition or worsening of symptoms should prompt an immediate return to this or the closest emergency department or call 911. Prescriptions: Ketorolac Trometh 10 mg Tab [TORAdol 10 MG TABLET] 10 mg PO TID 5 Days #15 tablet Outpatient Orders: Ortho Referral Time Frame: 1 Day, Facility: [facility], Location : ORTHO CLINIC
[2024-07-18 14:39] VITALS: TEMP 97.8
--- NOTE | 2024-07-18 14:48 | XRAY ---
Indication: Pain following fall. Comparison: None 2 view right forearm demonstrates nondisplaced comminuted cortical fracture distal radius and nondisplaced fracture ulnar styloid, better seen on same-day hand exam. Incidental osteopenia and tiny proximal radial shaft bone island. No other bony, articular, or soft tissue abnormalities
[2024-07-18] MEDS ORDERED: TORAdol 30 mg Injection ONE (14:49)
[2024-07-18] MEDS: TORAdol 30 mg Injection IM ONE (14:50)
--- NOTE | 2024-07-18 14:50 | XRAY ---
Indication: Pain following fall. Comparison: None 3 view right hand demonstrates nondisplaced posterior lateral cortical fracture distal radius and nondisplaced fracture base ulnar styloid. Incidental osteopenia, mild 1st metacarpal multangular degenerative changes, and minimal/mild degenerative changes all IP/MCP joints. No other bony, articular, or soft tissue abnormalities
[2024-07-18 15:20] VITALS: BP 125/84; PULSE 68; RESP 18; O2SAT 96
== END 2024-07-18 15:25 | disposition home or self-care (01) ==
LOC: ED 14:11
DX: S52.611A Displaced fracture of right ulna styloid process, initial encounter for closed fracture (principal); S52.501A Unspecified fracture of the lower end of right radius, initial encounter for closed fracture; W18.30XA Fall on same level, unspecified, initial encounter
CPT/HCPCS: 73090; 73130; 96372; 99283; J1885